=== PATIENT | female | born 1940 | race Caucasian/White ===

== ENCOUNTER 2022-07-08 14:23 | Observation (INO) ==
[2022-07-08] MEDS ORDERED: TUSSIONEX PENNKINETIC SUSP PO PRN (16:11)
[2022-07-08] MEDS ORDERED: NS 1/2 1,000 ML IV 1,000 ML IV ONE (16:22)
[2022-07-08] MEDS: NS 1/2 1,000 ML IV 1,000 ML IV SCH (16:51)
[2022-07-08 17:06] LABS: BASOPHILS % (AUTO) 0.7 % (0.2-1.0); EOSINOPHILS # (AUTO) 0.4 x10^3/uL (0.0-0.2); EOSINOPHILS % (AUTO) 7.4 % (0.9-2.9); HEMOGLOBIN 11.9 g/dL (12.0-16.0); LYMPHOCYTES # (AUTO) 1.9 X10^3/uL (1.3-2.9); LYMPHOCYTES % (AUTO) 35.1 % (21.0-51.0); MEAN CORPUSCULAR HEMOGLOBIN 31.7 pg (27.0-34.0); MEAN CORPUSCULAR HGB CONC 34.1 g/dL (33.0-35.0); MEAN CORPUSCULAR VOLUME 92.9 fL (80.0-100.0); MEAN PLATELET VOLUME 8.1 fL (7.4-11.0); MONOCYTES # (AUTO) 0.4 x10^3/uL (0.3-0.8); MONOCYTES % (AUTO) 7.3 % (0.0-13.0); NEUTROPHILS # (AUTO) 2.6 x10^3/uL (2.2-4.8); NEUTROPHILS % (AUTO) 49.5 % (42.0-75.0); RED BLOOD COUNT 3.76 X10^6/uL (3.5-5.4); RED CELL DISTRIBUTION WIDTH 13.6 % (11.6-16.5); WHITE BLOOD COUNT 5.3 X10^3/uL (3.6-10.0)
[2022-07-08] MEDS: DUONEB 0.5 MG/3 MG (3 mL) NEB SCH ×2 (17:06→20:18)
[2022-07-08] MEDS ORDERED: DUONEB 0.5 MG/3 MG (3 mL) NEB ONE (17:07)
[2022-07-08 17:15] LABS: ALANINE AMINOTRANSFERASE 58 Units/L (12-78); ALBUMIN 3.3 g/dL (3.4-5.0); ALKALINE PHOSPHATASE 78 Units/L (46-116); ASPARTATE AMINO TRANSFERASE 49 Units/L (15-37); BLOOD UREA NITROGEN 27 mg/dL (7-18); CARBON DIOXIDE 29.7 mmol/L (21-32); CHLORIDE 109 mmol/L (98-107); COR CA(FOR HYPOALB) 9.6 mg/dL (8.5-10.1); CREATININE 0.91 mg/dL (0.55-1.02); SODIUM 145 mmol/L (136-145); TOTAL PROTEIN 6.4 g/dL (6.4-8.2); eGFR NON BLACK RACES > 60 (>60)
[2022-07-08] MEDS ORDERED: FORTAZ or TAZICEF VIAL INJ ONE (17:38)
[2022-07-08] MEDS ORDERED: NS 100 ML IV 100 ML ONE (17:38)
[2022-07-08] MEDS: FORTAZ or TAZICEF VIAL INJ 1 G in NS 100 ML IV + SPIKE MINIBAG* 100 ML IV SCH ×2 (17:43→21:39)
[2022-07-08] MEDS: VSL#3 PO SCH (17:43)
[2022-07-08] MEDS: ROBITUSSIN DM PO SCH ×2 (17:43→20:45)
[2022-07-08] MEDS: LEVAQUIN PREMIX IV 750 MG 750 MG/150 ML BAG IV SCH (18:15)
[2022-07-08] MEDS ORDERED: PULMICORT NEB TX 0.5 MG NEB ONE (19:13)
[2022-07-08] MEDS: PULMICORT NEB TX 0.5 MG NEB SCH (20:18)
--- NOTE | 2022-07-08 20:36 | RAD ---
HISTORYPNEUMONIA Relevant Clinical InformationSTUDYCHEST, PA/LAT ADULTCOMPARISONNoneFINDINGSTrachea is midline. Heart size is normal. The lungs are hyperinflated with coarsened interstitial markings. No effusion or confluent airspace opacity. Coronary stent noted. Spinal scoliotic curvature.IMPRESSIONCOPD changes. No confluent pneumonia.Electronically signed by: Ebenezer Ma (Jul 08, 2022 20:34:41)
[2022-07-09] MEDS: DUONEB 0.5 MG/3 MG (3 mL) NEB SCH ×6 (00:02→20:45)
[2022-07-09] MEDS ORDERED: FORTAZ or TAZICEF VIAL INJ ONE ×2 (04:52→04:53)
[2022-07-09] MEDS ORDERED: NS 100 ML IV 0 ML ONE (04:52)
[2022-07-09] MEDS ORDERED: NS 100 ML IV 100 ML ONE (04:53)
[2022-07-09] MEDS: FORTAZ or TAZICEF VIAL INJ 1 G in NS 100 ML IV + SPIKE MINIBAG* 100 ML IV SCH (05:31)
[2022-07-09] MEDS ORDERED: NS 1/2 1,000 ML IV 1,000 ML IV ONE (05:32)
[2022-07-09 05:38] LABS: BASOPHILS % (AUTO) 0.5 % (0.2-1.0); EOSINOPHILS # (AUTO) 0.3 x10^3/uL (0.0-0.2); EOSINOPHILS % (AUTO) 7.6 % (0.9-2.9); HEMATOCRIT 33.3 % (36.0-47.0); HEMOGLOBIN 11.4 g/dL (12.0-16.0); LYMPHOCYTES # (AUTO) 1.8 X10^3/uL (1.3-2.9); LYMPHOCYTES % (AUTO) 40.8 % (21.0-51.0); MEAN CORPUSCULAR HEMOGLOBIN 31.7 pg (27.0-34.0); MEAN CORPUSCULAR HGB CONC 34.2 g/dL (33.0-35.0); MEAN CORPUSCULAR VOLUME 92.8 fL (80.0-100.0); MEAN PLATELET VOLUME 8.1 fL (7.4-11.0); MONOCYTES # (AUTO) 0.3 x10^3/uL (0.3-0.8); MONOCYTES % (AUTO) 7.3 % (0.0-13.0); NEUTROPHILS % (AUTO) 43.8 % (42.0-75.0); RED BLOOD COUNT 3.59 X10^6/uL (3.5-5.4); RED CELL DISTRIBUTION WIDTH 13.6 % (11.6-16.5); WHITE BLOOD COUNT 4.5 X10^3/uL (3.6-10.0)
[2022-07-09 05:47] LABS: ALANINE AMINOTRANSFERASE 47 Units/L (12-78); ALKALINE PHOSPHATASE 73 Units/L (46-116); ASPARTATE AMINO TRANSFERASE 39 Units/L (15-37); BLOOD UREA NITROGEN 21 mg/dL (7-18); CALCIUM 8.7 mg/dL (8.5-10.1); CHLORIDE 110 mmol/L (98-107); COR CA(FOR HYPOALB) 9.5 mg/dL (8.5-10.1); CREATININE 0.86 mg/dL (0.55-1.02); SODIUM 145 mmol/L (136-145); eGFR NON BLACK RACES > 60 (>60)
[2022-07-09] MEDS: NS 1/2 1,000 ML IV 1,000 ML IV SCH ×2 (05:59→20:55)
[2022-07-09] MEDS: VSL#3 PO SCH (08:53)
--- NOTE | 2022-07-09 08:56 | RAD ---
HISTORYShortness of breathSTUDYChest AP [id number]/10/2023FINDINGSHear t size is normal. Alvina are normal. Aorta is calcified. Lungs are hyperinflated but free of acute infiltrates. No pleural effusions are identified. Bony thorax is unremarkable.IMPRESSIONLungs hyperinflated but free of acute infiltrates. Consistent with COPD in the appropriate clinical settingElectronically signed by: NNEKA SOTO (Jul 09, 2022 08:54:30)
[2022-07-09] MEDS: ROBITUSSIN DM PO SCH ×4 (09:07→20:50)
[2022-07-09] MEDS: PULMICORT NEB TX 0.5 MG NEB SCH ×2 (09:24→20:45)
[2022-07-09] MEDS: LOVENOX INJ 40 MG SYR SC SCH (12:58)
[2022-07-09] MEDS: SOLU-Medrol 40 MG VIAL IVP SCH ×3 (12:58→21:00)
[2022-07-09] MEDS: FORTAZ or TAZICEF VIAL INJ 1 G in NS 100 ML IV 100 ML IV SCH ×2 (15:10→21:00)
[2022-07-09] MEDS: LEVAQUIN PREMIX IV 750 MG 750 MG/150 ML BAG IV SCH (20:48)
[2022-07-09] MEDS: LIPITOR TAB 40 MG PO SCH (20:50)
[2022-07-09] MEDS: PERIACTIN TAB 4 MG PO SCH (20:50)
[2022-07-09] MEDS: NAMENDA TAB 10 MG PO SCH (20:50)
--- NOTE | 2022-07-09 21:50 | DR.UPDATE ---
H&P Update H&P Reviewed: Yes Any changes to H&P?: Yes Changes noted:: WAS ADMITTED OBSERVATION STATUS FOR TREATMENT OF COPD EXACERBATION WITH ACUTE BRONCHITIS. SHE REPORTED PERSISTENT COUGH AND SHORTNESS OF BREATH FOR THE PAST SEVERAL DAYS. SHE HAD BEEN UTILIZING DUONEBS AT HOME WITHOUT IMPROVEMENT IN SYMPTOMS. ON ADMISSION, HER VITALS WERE 97.4-78-20-97%-158/70. LABS WERE OBTAINED. WBC 5.3, RBC 3.76, HGB 11.9, HCT 35.0, PLT COUNT 161, SODIUM 145, POTASSIUM 4.5, CHLORIDE 109, CARBON DIOXIDE 29.7, BUN 27, CREATININE 0.91, GLUCOSE 103, CALCIUM 9.0, TOTAL BILI 0.30, AST 49, ALT 58, ALK PHOS 78, TOTAL PROTEIN 6.4, ALBUMIN 3.3. BLOOD CULTURES WERE SET UP. A CHEST XRAY WAS OBTAINED AND REVEALED: COPD changes. No confluent pneumonia. SHE WAS STARTED ON NS AT 75 ML/HR, FORTAZ 1G IV Q8H, LEVAQUIN 750MG IV DAILY, DUONEBS Q4H, PULMICORT NEBS BID, TUSSIONEX 5ML PO Q12H PRN, LOVENOX 40MG SC DAILY, ROBITUSSIN DM 10ML QID, PROBIOTICS, AND SOLU-MEDROL 80MG IV Q8H. HER HOME MEDICATIONS WERE RESUMED. OTHERWISE, WE PLAN TO FOLLOW-UP WITH AM LABS AND CHEST XRAY AND CONTINUE TO MONITOR. TIME SPENT ON CLINICAL ASSESSMENT, REVIEWING LABS AND IMAGING, DECISION MAKING, AND DOCUMENTATION GREATER THAN 75 MINUTES. Patient was examined?: Yes
[2022-07-10] MEDS: DUONEB 0.5 MG/3 MG (3 mL) NEB SCH ×6 (01:25→20:57)
[2022-07-10] MEDS ORDERED: NS 1/2 1,000 ML IV 1,000 ML IV ONE (01:35)
[2022-07-10] MEDS: NS 1/2 1,000 ML IV 1,000 ML IV SCH ×2 (02:05→13:01)
[2022-07-10] MEDS: FORTAZ or TAZICEF VIAL INJ 1 G in NS 100 ML IV 100 ML IV SCH ×3 (05:03→21:27)
[2022-07-10] MEDS: SOLU-Medrol 40 MG VIAL IVP SCH ×3 (05:03→21:27)
[2022-07-10 05:27] LABS: BASOPHILS % (AUTO) 0.1 % (0.2-1.0); LYMPHOCYTES # (AUTO) 0.7 X10^3/uL (1.3-2.9); LYMPHOCYTES % (AUTO) 19.2 % (21.0-51.0); MEAN CORPUSCULAR HEMOGLOBIN 31.5 pg (27.0-34.0); MEAN CORPUSCULAR HGB CONC 34.2 g/dL (33.0-35.0); MEAN PLATELET VOLUME 8.1 fL (7.4-11.0); MONOCYTES # (AUTO) 0 x10^3/uL (0.3-0.8); MONOCYTES % (AUTO) 1.3 % (0.0-13.0); NEUTROPHILS # (AUTO) 2.8 x10^3/uL (2.2-4.8); NEUTROPHILS % (AUTO) 79.4 % (42.0-75.0); RED CELL DISTRIBUTION WIDTH 13.3 % (11.6-16.5); WHITE BLOOD COUNT 3.5 X10^3/uL (3.6-10.0)
[2022-07-10 05:51] LABS: ALANINE AMINOTRANSFERASE 40 Units/L (12-78); ALBUMIN 3.1 g/dL (3.4-5.0); ALKALINE PHOSPHATASE 78 Units/L (46-116); ASPARTATE AMINO TRANSFERASE 31 Units/L (15-37); BLOOD UREA NITROGEN 17 mg/dL (7-18); CALCIUM 8.9 mg/dL (8.5-10.1); CARBON DIOXIDE 27.7 mmol/L (21-32); CHLORIDE 111 mmol/L (98-107); COR CA(FOR HYPOALB) 9.6 mg/dL (8.5-10.1); COR NA(FOR HYPERGLY) 148 mmol/L (136-145); CREATININE 0.87 mg/dL (0.55-1.02); SODIUM 146 mmol/L (136-145); TOTAL PROTEIN 6.4 g/dL (6.4-8.2); eGFR NON BLACK RACES > 60 (>60)
[2022-07-10] MEDS ORDERED: POTASSIUM CHL 60 MEQ/NS 0.45% 500 ML IV PRN (06:24)
[2022-07-10] MEDS ORDERED: MICRO K EXTEN CAP 10 MEQ PO PRN (06:24)
[2022-07-10] MEDS ORDERED: KLOR-CON PO PRN (06:24)
[2022-07-10] MEDS ORDERED: POTASSIUM CHLORIDE LIQ 20 MEQ UDC PO PRN (06:24)
[2022-07-10] MEDS ORDERED: K-RIDER 10 MEQ/NS 100 ML 10 MEQ/100 ML BAG IV PRN (06:24)
[2022-07-10] MEDS ORDERED: POTASSIUM CHL 40 MEQ/NS 0.45% 500 ML IV PRN (06:24)
[2022-07-10] MEDS: K-DUR TAB 20 MEQ PO PRN (06:47)
[2022-07-10] MEDS: MAGNESIUM SULFATE 1 GRAM/100 mL PREMIX 1 G/100 ML BAG IV PRN ×2 (06:48→09:49)
--- NOTE | 2022-07-10 06:57 | RAD ---
HISTORYShortness of breathSTUDYChest AP [id number] June 2022FINDINGSHeart size is normal. Alvina are normal. Aorta is calcified. Lungs are mildly hyperinflated but free of acute infiltrates. No pleural effusions are identified. Bony thorax is unremarkable.IMPRESSIONLungs mildly hyperinflated but free of acute infiltrates. Consistent with COPD in the appropriate clinical settingElectronically signed by: NNEKA SOTO (Jul 10, 2022 06:55:14)
[2022-07-10] MEDS: PULMICORT NEB TX 0.5 MG NEB SCH ×2 (08:04→20:57)
--- NOTE | 2022-07-10 08:48 | EKG ---
Test Reason : CHEST PAIN Blood Pressure : */* mmHG Vent. Rate : 118 BPM Atrial Rate : 118 BPM P-R Int : 162 ms QRS Dur : 138 ms QT Int : 362 ms P-R-T Axes : 80 36 133 degrees QTc Int : 507 ms Atrial flutter with 2 to 1 block Left bundle branch block Abnormal ECG No previous ECGs available Confirmed by Surya Milner ([id number]) on 07/10/2022 11:18:36 AM Referred By: Confirmed By: Surya Milner
[2022-07-10] MEDS: VSL#3 PO SCH (08:51)
[2022-07-10] MEDS: ROBITUSSIN DM PO SCH ×4 (08:51→21:14)
[2022-07-10] MEDS: PERIACTIN TAB 4 MG PO SCH ×2 (08:52→21:13)
[2022-07-10] MEDS: LOVENOX INJ 40 MG SYR SC SCH (08:52)
[2022-07-10] MEDS: NAMENDA TAB 10 MG PO SCH ×2 (08:52→21:14)
[2022-07-10] MEDS ORDERED: NITROSTAT ONE ×2 (10:09→10:11)
[2022-07-10] MEDS: NITROSTAT SL PRN ×2 (10:14→10:19)
[2022-07-10] MEDS: COREG TAB 12.5 MG PO SCH ×2 (10:35→21:14)
--- NOTE | 2022-07-10 13:08 | EKG ---
Test Reason : CHEST PAIN Blood Pressure : */* mmHG Vent. Rate : 83 BPM Atrial Rate : 83 BPM P-R Int : 176 ms QRS Dur : 148 ms QT Int : 424 ms P-R-T Axes : 88 -31 89 degrees QTc Int : 498 ms Normal sinus rhythm Left axis deviation Left bundle branch block Abnormal ECG When compared with ECG of 10-JUL-2022 08:38, Previous ECG has undetermined rhythm, needs review QRS axis shifted left T wave inversion no longer evident in Inferior leads Confirmed by Surya Milner ([id number]) on 07/11/2022 7:31:41 PM Referred By: Confirmed By: Surya Milner
--- NOTE | 2022-07-10 14:37 | CT ---
CTA CHESTCLINICAL INDICATION: CHEST PAIN, SOB, R/O PE, ELEVATED D DIMERPROCEDURE: Non gated axial images of the chest were obtained with intravenous contrast according to pulmonary embolism protocol. MIPS were reconstructed Dose reduction techniques including Automated Exposure Control (AEC) and adjustment of mA and kV were utlized.COMPARISON:NoneFINDINGS:No evidence of a pulmonary embolism to the level of the segmental pulmonary arteries.The heart is normal in size . No pericardial effusion. Severe coronary calcification. Mild scarring of the lungs. No suspicious mediastinal or axillary lymph nodes . No focal consolidations, pleural effusions or pneumothorax .Airways are patent . No suspicious pulmonary nodules or masses .Limited images of the upper abdomen are unremarkable.No aggressive osseous lesions.IMPRESSION:1. No evidence of pulmonary embolism.Electronically signed by: SAYRA CLANCY (Jul 10, 2022 14:36:28)
--- NOTE | 2022-07-10 16:46 | EKG ---
Test Reason : CHEST PAIN Blood Pressure : */* mmHG Vent. Rate : 83 BPM Atrial Rate : 83 BPM P-R Int : 216 ms QRS Dur : 152 ms QT Int : 430 ms P-R-T Axes : 89 -46 90 degrees QTc Int : 505 ms Sinus rhythm with 1st degree AV block Left axis deviation Left bundle branch block Abnormal ECG When compared with ECG of 10-JUL-2022 13:01, (Unconfirmed) KS interval has increased Confirmed by Surya iMlner ([id number]) on 07/11/2022 7:31:36 PM Referred By: Confirmed By: Surya Milner
[2022-07-10] MEDS: LIPITOR TAB 40 MG PO SCH (21:14)
[2022-07-10] MEDS: LEVAQUIN PREMIX IV 750 MG 750 MG/150 ML BAG IV SCH (21:24)
[2022-07-11] MEDS: DUONEB 0.5 MG/3 MG (3 mL) NEB SCH ×5 (01:14→20:12)
[2022-07-11 05:20] LABS: BASOPHILS % (AUTO) 0 % (0.2-1.0); HEMATOCRIT 30.9 % (36.0-47.0); HEMOGLOBIN 10.9 g/dL (12.0-16.0); LYMPHOCYTES # (AUTO) 0.7 X10^3/uL (1.3-2.9); LYMPHOCYTES % (AUTO) 7.5 % (21.0-51.0); MEAN CORPUSCULAR HEMOGLOBIN 32.1 pg (27.0-34.0); MEAN CORPUSCULAR HGB CONC 35.2 g/dL (33.0-35.0); MEAN CORPUSCULAR VOLUME 91.2 fL (80.0-100.0); MONOCYTES # (AUTO) 0.4 x10^3/uL (0.3-0.8); NEUTROPHILS # (AUTO) 8.1 x10^3/uL (2.2-4.8); NEUTROPHILS % (AUTO) 88.5 % (42.0-75.0); RED BLOOD COUNT 3.39 X10^6/uL (3.5-5.4); RED CELL DISTRIBUTION WIDTH 13.3 % (11.6-16.5); WHITE BLOOD COUNT 9.2 X10^3/uL (3.6-10.0)
[2022-07-11 05:39] LABS: ALANINE AMINOTRANSFERASE 32 Units/L (12-78); ALBUMIN 3.1 g/dL (3.4-5.0); ALKALINE PHOSPHATASE 72 Units/L (46-116); ASPARTATE AMINO TRANSFERASE 28 Units/L (15-37); BLOOD UREA NITROGEN 21 mg/dL (7-18); CALCIUM 8.9 mg/dL (8.5-10.1); CARBON DIOXIDE 24.7 mmol/L (21-32); CHLORIDE 113 mmol/L (98-107); COR CA(FOR HYPOALB) 9.6 mg/dL (8.5-10.1); COR NA(FOR HYPERGLY) 149 mmol/L (136-145); CREATININE 0.86 mg/dL (0.55-1.02); MAGNESIUM 2.2 mg/dL (2.0-2.9); SODIUM 147 mmol/L (136-145); TOTAL PROTEIN 6.2 g/dL (6.4-8.2); eGFR NON BLACK RACES > 60 (>60)
[2022-07-11] MEDS: FORTAZ or TAZICEF VIAL INJ 1 G in NS 100 ML IV 100 ML IV SCH ×3 (05:40→21:17)
[2022-07-11] MEDS: SOLU-Medrol 40 MG VIAL IVP SCH ×3 (05:41→21:17)
[2022-07-11] MEDS: K-DUR TAB 20 MEQ PO PRN (06:29)
[2022-07-11] MEDS: NAMENDA TAB 10 MG PO SCH ×2 (09:24→20:04)
[2022-07-11] MEDS: LOVENOX INJ 40 MG SYR SC SCH (09:25)
[2022-07-11] MEDS: ROBITUSSIN DM PO SCH ×4 (09:25→20:03)
[2022-07-11] MEDS: VSL#3 PO SCH (09:25)
[2022-07-11] MEDS: COREG TAB 12.5 MG PO SCH ×2 (09:25→20:03)
[2022-07-11] MEDS: PERIACTIN TAB 4 MG PO SCH ×2 (09:25→20:04)
[2022-07-11] MEDS: PULMICORT NEB TX 0.5 MG NEB SCH ×2 (09:27→20:12)
[2022-07-11 10:50] LABS: BILIRUBIN,URINE NEGATIVE (NEGATIVE); BLOOD/HEMOGLOBIN,URINE 1+ (NEGATIVE); GLUCOSE, URINE NEGATIVE (NEGATIVE); KETONES,URINE NEGATIVE (NEGATIVE); LEUKOCYTE ESTERASE ,URINE NEGATIVE (NEGATIVE); NITRITES,URINE NEGATIVE (NEGATIVE); PROTEIN,URINE NEGATIVE (NEGATIVE); UROBILINOGEN,URINE NORMAL (NORMAL)
[2022-07-11 11:05] LABS: APPEARANCE,URINE CLEAR (CLEAR); BACTERIA,URINE NEGATIVE /HPF (NEGATIVE); COLOR,URINE STRAW (YELLOW); RBC,URINE 0-2 /HPF (0-3); SQUAMOUS EPITHELIAL CELL,UR FEW /HPF (NEGATIVE)
--- NOTE | 2022-07-11 11:47 | RAD ---
HISTORYBRONCHOPNEUMONIA, SOB Relevant Clinical InformationSTUDYCHEST, 1 [id number]/12/2023FINDINGSTrachea is midline. Borderline heart size. There is emphysemaNo evidence of focal pneumonia, pneumothorax or pleural effusions. Osseus structures are unremarkable.IMPRESSIONNo acute cardiopulmonary findings. EmphysemaElectronically signed by: Laurence Pichardo (Jul 11, 2022 11:46:24)
--- NOTE | 2022-07-11 13:02 | PCM.PROG ---
Progress Note - Progress Note for Day of Date of Exam: 07/10/22 - Subjective Subjective: IS A 82 YEAR OLD PATIENT OF OURS. SHE IS CURRENTLY OBSERVATION STATUS FOR [facility] OF COPD EXACERBATION WITH ACUTE BRONCHITIS. SHE HAS A PMH OF CVA, [place] WITH CARDIAC STENTS, DEMENTIA, ALZHEIMERS, HYPERLIPIDEMIA, HTN, ATHEROSCLEROTIC HEART DISEASE, CAD. TODAY, SHE IS ALERT AND ORIENTED, LYING IN BED ON MORNING ROUNDS. SHE CONTINUES WITH COMPLAINTS OF COUGH AND SHORTNESS OF BREATH. SHE ALSO REPORTS CHEST PAIN THAT STARTED THIS MORNING. PAIN WAS LOCATED IN THE LEFT PERICARDIAL REGION. PAIN DESCRIBED SHARP AND NONRADIATING. THERE IS ASSOCIATED SHORTNESS OF BREATH WITH CHEST PAIN. SHE REPORTS THAT PAIN LASTED FOR SEVERAL MINUTES AND THEN WENT AWAY. ON EXAMINATION, HEART IS REGULAR IN RATE AND RHYTHM. BILATERAL LUNGS ARE NOTED WITH RHONCHI, DIMINISHED. ABDOMEN IS FLAT, SOFT, AND NON-TENDER WITH NORMAL BOWEL SOUNDS NOTED IN ALL QUADRANTS. NO UPPER OR LOWER EXTREMITY EDEMA NOTED. HER VITALS THIS MORNING ARE: 98.5-92-20-93%-163/70. LABS WERE OBTAINED. WBC 3.5, RBC 3.80, HGB 12.0, HCT 35.0, PLT COUNT 148, D-DIMER 1.09, SODIUM 145, POTASSIUM 4.2, CHLORIDE 110, CARBON DIOXIDE 28.0, BUN 21, CREATININE 0.86, GLUCOSE 91, CALCIUM 8.7, AST 39, ALT 47, ALK PHOS 73, TOTAL PROTEIN 6.0, ALBUMIN 3.0. RESPIRATORY VIRAL PANEL IS POSITIVE FOR GROWTH OF STREPTOCOCCUS PNEUMONIAE AND RHINOVIRUS. SHE IS CURRENTLY RECEIVING NS AT 75 ML/HR, FORTAZ 1G IV Q8H, LEVAQUIN 750MG IV DAILY, DUONEBS Q4H, PULMICORT NEBS BID, TUSSIONEX 5ML PO Q12H PRN, LOVENOX 40MG SC DAILY, ROBITUSSIN DM 10ML QID, PROBIOTICS, AND SOLU-MEDROL 80MG IV Q8H. HER HOME MEDICATIONS OF LIPITOR, PERIACTIN, AND NAMENDA WERE RESUMED. WE WILL OBTAIN TROPONIN, CREATINE KINASE LEVEL, AND AN EKG THIS MORNING. 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 OTHERWISE, WE WILL FOLLOW-UP WITH AM LABS AND CONTINUE TO MONITOR. TIME SPENT ON CLINICAL ASSESSMENT, REVIWING LABS AND IMAGING, DECISION MAKING, AND DOCUMENTATION GREATER THAN 45 MINUTES. - Past Medical Family Social History Past Med/Fam/Surg Hx: No changes since H&P Allergies: Allergies No Known Allergies Allergy (Verified 07/08/22 17:30) - Review of Systems ROS: No change since H&P - Vital Signs and I&O's Vital Signs: Temperature 98 F Pulse Rate [Left Radial] 80 Pulse Rate 96 Respiratory Rate 16 Blood Pressure [Left Arm] 132/88 Blood Pressure [Right Arm] 162/82 O2 Sat by Pulse Oximetry 98 Intake and Output: Intake & Output 07/09/22 07/10/22 07/11/22 07/12/22 11:59 11:59 11:59 11:59 Intake Total 1457 / 1457 2460 / 2460 3140 / 3140 Balance 1457 / 1457 2460 / 2460 3140 / 3140 - Physical Exam Oriented: Normal Eyes: Normal Ear: Normal Nose: Normal Throat: Normal Respiratory: Diminished, Rhonchi Cardiovascular: Normal : Normal Auscultation: Bowel Sounds: Normal Palpation: Normal Tenderness: Normal Skin: Normal Musculoskeletal: Normal Psychiatric: Normal Mood Description: Calm Affect: Normal Speech Pattern: Clear, Appropriate - Laboratory and Diagnostics Result Diagrams: 07/11/22 04:46 07/11/22 08:50 Labs: 07/08/22 16:30 Blood Blood Culture - Preliminary 07/08/22 16:20 Blood Blood Culture - Preliminary Laboratory WBC 9.2 X10^3/uL (3.6-10.0) 07/11/22 04:46 RBC 3.39 X10^6/uL (3.5-5.4) L 07/11/22 04:46 Hgb 10.9 g/dL (12.0-16.0) L 07/11/22 04:46 Hct 30.9 % (36.0-47.0) L 07/11/22 04:46 MCV 91.2 fL (80.0-100.0) 07/11/22 04:46 MCH 32.1 pg (27.0-34.0) 07/11/22 04:46 MCHC 35.2 g/dL (33.0-35.0) H 07/11/22 04:46 RDW 13.3 % (11.6-16.5) 07/11/22 04:46 Plt Count 158 X10^3/uL (150.0-450.0) 07/11/22 04:46 MPV 8.0 fL (7.4-11.0) 07/11/22 04:46 Neut % (Auto) 88.5 % (42.0-75.0) H 07/11/22 04:46 Lymph % (Auto) 7.5 % (21.0-51.0) L 07/11/22 04:46 Cross % (Auto) 4.0 % (0.0-13.0) 07/11/22 04:46 Eos % (Auto) 0.0 % (0.9-2.9) L 07/11/22 04:46 Baso % (Auto) 0 % (0.2-1.0) L 07/11/22 04:46 Neut # (Auto) 8.1 x10^3/uL (2.2-4.8) H 07/11/22 04:46 Lymph # (Auto) 0.7 X10^3/uL (1.3-2.9) L 07/11/22 04:46 Cross # (Auto) 0.4 x10^3/uL (0.3-0.8) 07/11/22 04:46 Eos # (Auto) 0.0 x10^3/uL (0.0-0.2) 07/11/22 04:46 Baso # (Auto) 0.0 X10^3/uL (0.0-0.1) 07/11/22 04:46 Absolute Nucleated RBC 0.1 /100WBC 07/11/22 04:46 D-Dimer 1.09 ug/ml (0.0-0.57) H 07/10/22 10:23 Sodium 147 mmol/L (136-145) H 07/11/22 04:46 Corrected Sodium 149 mmol/L (136-145) H 07/11/22 04:46 Potassium 3.7 mmol/L (3.5-5.1) 07/11/22 08:50 Chloride 113 mmol/L (98-107) H 07/11/22 04:46 Carbon Dioxide 24.7 mmol/L (21-32) 07/11/22 04:46 BUN 21 mg/dL (7-18) H 07/11/22 04:46 Creatinine 0.86 mg/dL (0.55-1.02) 07/11/22 04:46 Est GFR (MDRD) Af Amer > 60 (>60) 07/11/22 04:46 Est GFR (MDRD) Non-Af > 60 (>60) 07/11/22 04:46 Glucose 169 mg/dL (65-99) H 07/11/22 04:46 Calcium 8.9 mg/dL (8.5-10.1) 07/11/22 04:46 Corrected Calcium 9.6 mg/dL (8.5-10.1) 07/11/22 04:46 Magnesium 2.2 mg/dL (2.0-2.9) 07/11/22 04:46 Total Bilirubin 0.20 mg/dL (0.2-1.0) 07/11/22 04:46 AST 28 Units/L (15-37) 07/11/22 04:46 ALT 32 Units/L (12-78) 07/11/22 04:46 Alkaline Phosphatase 72 Units/L (46-116) 07/11/22 04:46 Creatine Kinase 94 Units/L (26-192) 07/10/22 16:50 Troponin I High Sens 22.8 ng/L (4.0-60.0) 07/10/22 22:20 Total Protein 6.2 g/dL (6.4-8.2) L 07/11/22 04:46 Albumin 3.1 g/dL (3.4-5.0) L 07/11/22 04:46 Globulin 3.1 g/dL (2.5-4.5) 07/11/22 04:46 Albumin/Globulin Ratio 1.0 Ratio (1.1-2.1) L 07/11/22 04:46 Specimen Type Clean catch urine 07/11/22 10:15 Urine Color Straw (YELLOW) 07/11/22 10:15 Urine Appearance Clear (CLEAR) 07/11/22 10:15 Urine pH 6.0 (5.0 - 8.0) 07/11/22 10:15 Ur Specific [place] 1.010 (1.000-1.030) 07/11/22 10:15 Urine Protein Negative (NEGATIVE) 07/11/22 10:15 Urine Glucose (UA) Negative (NEGATIVE) 07/11/22 10:15 Urine Ketones Negative (NEGATIVE) 07/11/22 10:15 Urine Blood 1+ (NEGATIVE) 07/11/22 10:15 Urine Nitrite Negative (NEGATIVE) 07/11/22 10:15 Urine Bilirubin Negative (NEGATIVE) 07/11/22 10:15 Urine Urobilinogen Normal (NORMAL) 07/11/22 10:15 Ur Leukocyte Esterase Negative (NEGATIVE) 07/11/22 10:15 Urine RBC 0-2 /HPF (0-3) 07/11/22 10:15 Urine WBC 0-2 /HPF (0-5) 07/11/22 10:15 Ur Squamous Epith Cells Few /HPF (NEGATIVE) 07/11/22 10:15 Urine Bacteria Negative /HPF (NEGATIVE) 07/11/22 10:15 Ur Culture Indicated? No/not indicated 07/11/22 10:15 Resp Viral Panel (PCR) See scanned report 07/08/22 16:58 - Plan (1) COPD with acute bronchitis Status: Acute Plan: SUPPLEMENTAL OXYGEN, NS AT 75 ML/HR, FORTAZ 1G IV Q8H, LEVAQUIN 750MG IV DAILY, DUONEBS Q4H, PULMICORT NEBS BID, TUSSIONEX 5ML PO Q12H PRN, LOVENOX 40MG SC DAILY, ROBITUSSIN DM 10ML QID, PROBIOTICS, AND SOLU-MEDROL 80MG IV Q8H. RESUME HOME MEDS. CONSULT CARDIOLOGY, OBTAIN CARDIAC ENZYMES AND EKG (2) Streptococcus pneumoniae Status: Acute (3) Rhinovirus Status: Acute (4) Chest pain Status: Acute Qualifiers: Chest pain type: chest pain on breathing Qualified Code(s): R07.1 - Chest pain on breathing (5) Dementia Status: Chronic Qualifiers: Dementia type: Alzheimer's Alzheimer's disease onset: unspecified onset Dementia severity: unspecified severity Dementia behavioral or psychological symptom: without behavioral, psychotic, or mood disturbance or anxiety Qualified Code(s): G30.9 - Alzheimer's disease, unspecified; F02.80 - Dementia in other diseases classified elsewhere, unspecified severity, without behavioral disturbance, psychotic disturbance, mood disturbance, and anxiety (6) HTN (hypertension) Status: Acute Qualifiers: Hypertension type: primary hypertension Qualified Code(s): I10 - Essential (primary) hypertension (7) Atherosclerotic heart disease Status: Chronic Qualifiers: Coronary Disease-Associated Artery/Lesion type: [place] artery [place] vs. transplanted heart: [place] heart Associated angina: unspecified whether angina present Qualified Code(s): I25.10 - Atherosclerotic heart disease of [place] coronary artery without angina pectoris
[2022-07-11] MEDS ORDERED: NS 1/2 1,000 ML IV 1,000 ML IV ONE (14:04)
[2022-07-11] MEDS: NS 1/2 1,000 ML IV 1,000 ML IV SCH (14:13)
--- NOTE | 2022-07-11 15:30 | CT ---
HISTORYAMSSTUDYBRAIN W/O [id number]/04/2023TECHNIQUEMultiple axial images of the head were performed from the skull base to the vertex using standard departmental protocol. Sagittal and coronal reformatted images were performed. Dose reduction techniques including Automated Exposure Control (AEC) and adjustment of mA and kV were utilized.FINDINGSNo evidence of acute territorial infarct. No acute intracranial hemorrhage. No evidence of intracranial mass or midline shift. No hydrocephalus. No abnormal intra or extra-axial fluid collections. Chronic small vessel ischemic changes and global volume loss with commensurate ventricular dilatation. Intracranial vascular calcifications.The calvaria is intact. The bilateral mastoid air cells and visualized paranasal sinuses are well pneumatized. The bilateral orbits are unremarkable.IMPRESSIONNo acute intracranial findings.Electronically signed by: NNEKA SOTO (Jul 11, 2022 15:29:19)
[2022-07-11] MEDS ORDERED: CATAPRES TAB 0.1 MG PO ONE (16:32)
[2022-07-11] MEDS ORDERED: NORMODYNE INJ 20 MG VIAL IV PRN (16:32)
[2022-07-11] MEDS ORDERED: APRESOLINE INJ 20 MG VIAL IVP ONE (16:32)
[2022-07-11] MEDS ORDERED: VALIUM INJ IVP ONE (19:16)
[2022-07-11] MEDS: LEVAQUIN PREMIX IV 750 MG 750 MG/150 ML BAG IV SCH (20:04)
[2022-07-11] MEDS: LIPITOR TAB 40 MG PO SCH (20:04)
[2022-07-12] MEDS: FORTAZ or TAZICEF VIAL INJ 1 G in NS 100 ML IV 100 ML IV SCH ×3 (00:05→14:14)
[2022-07-12] MEDS: DUONEB 0.5 MG/3 MG (3 mL) NEB SCH ×6 (04:51→21:20)
[2022-07-12] MEDS: NS 1/2 1,000 ML IV 1,000 ML IV SCH ×2 (05:49→18:01)
[2022-07-12] MEDS: SOLU-Medrol 40 MG VIAL IVP SCH ×3 (05:49→21:20)
[2022-07-12 06:12] LABS: BASOPHILS % (AUTO) 0 % (0.2-1.0); HEMATOCRIT 29.6 % (36.0-47.0); HEMOGLOBIN 10.3 g/dL (12.0-16.0); LYMPHOCYTES # (AUTO) 0.6 X10^3/uL (1.3-2.9); LYMPHOCYTES % (AUTO) 8.7 % (21.0-51.0); MEAN CORPUSCULAR HEMOGLOBIN 32.1 pg (27.0-34.0); MEAN CORPUSCULAR HGB CONC 34.8 g/dL (33.0-35.0); MEAN CORPUSCULAR VOLUME 92.2 fL (80.0-100.0); MEAN PLATELET VOLUME 7.9 fL (7.4-11.0); MONOCYTES # (AUTO) 0.3 x10^3/uL (0.3-0.8); NEUTROPHILS # (AUTO) 5.5 x10^3/uL (2.2-4.8); NEUTROPHILS % (AUTO) 87.3 % (42.0-75.0); RED BLOOD COUNT 3.21 X10^6/uL (3.5-5.4); RED CELL DISTRIBUTION WIDTH 13.5 % (11.6-16.5); WHITE BLOOD COUNT 6.3 X10^3/uL (3.6-10.0)
[2022-07-12 06:29] LABS: ALANINE AMINOTRANSFERASE 29 Units/L (12-78); ALBUMIN 2.7 g/dL (3.4-5.0); ALKALINE PHOSPHATASE 61 Units/L (46-116); ASPARTATE AMINO TRANSFERASE 27 Units/L (15-37); BLOOD UREA NITROGEN 24 mg/dL (7-18); CALCIUM 8.5 mg/dL (8.5-10.1); CARBON DIOXIDE 26.1 mmol/L (21-32); CHLORIDE 113 mmol/L (98-107); COR CA(FOR HYPOALB) 9.5 mg/dL (8.5-10.1); COR NA(FOR HYPERGLY) 148 mmol/L (136-145); CREATININE 0.76 mg/dL (0.55-1.02); SODIUM 147 mmol/L (136-145); TOTAL PROTEIN 5.6 g/dL (6.4-8.2); eGFR NON BLACK RACES > 60 (>60)
--- NOTE | 2022-07-12 07:30 | RAD ---
HISTORYShortness of breathSTUDYChest AP [id number]/13/2023FINDINGSHear t size is normal. Alvina are normal. Lung shukla are clear. No pleural effusions are identified. Bony thorax is unremarkable.IMPRESSIONLungs clearElectronically signed by: NNEKA SOTO (Jul 12, 2022 07:28:35)
[2022-07-12] MEDS: PULMICORT NEB TX 0.5 MG NEB SCH ×2 (08:49→21:19)
[2022-07-12] MEDS: NAMENDA TAB 10 MG PO SCH ×2 (09:21→21:20)
[2022-07-12] MEDS: LOVENOX INJ 40 MG SYR SC SCH (09:21)
[2022-07-12] MEDS: PERIACTIN TAB 4 MG PO SCH ×2 (09:22→21:20)
[2022-07-12] MEDS: COREG TAB 12.5 MG PO SCH ×2 (09:22→21:20)
[2022-07-12] MEDS: K-DUR TAB 20 MEQ PO PRN (09:22)
[2022-07-12] MEDS: ROBITUSSIN DM PO SCH ×4 (09:22→21:20)
[2022-07-12] MEDS: VSL#3 PO SCH (09:22)
--- NOTE | 2022-07-12 11:34 | PCM.PROG ---
Progress Note - Progress Note for Day of Date of Exam: 07/11/22 - Subjective Subjective: IS A 82 YEAR OLD PATIENT OF OURS. SHE IS CURRENTLY OBSERVATION STATUS FOR [facility] OF COPD EXACERBATION WITH ACUTE BRONCHITIS. SHE HAS A PMH OF CVA, [place] WITH CARDIAC STENTS, DEMENTIA, ALZHEIMERS, HYPERLIPIDEMIA, HTN, ATHEROSCLEROTIC HEART DISEASE, CAD. TODAY, SHE IS ALERT, LYING IN BED ON MORNING ROUNDS. SHE DOES SEEM TO BE SOMEWHAT CONFUSED THIS MORNING, BUT IS ABLE TO FOLLOW COMMANDS APPROPRIATELY. SHE DENIES CHEST PAIN THIS MORNING, BUT CONTINUES WITH COMPLAINTS OF COUGH AND SHORTNESS OF BREATH AT TIMES. ON EXAMINATION, HEART IS REGULAR IN RATE AND RHYTHM. BILATERAL LUNGS ARE NOTED WITH RHONCHI, DIMINISHED. ABDOMEN IS FLAT, SOFT, AND NON-TENDER WITH NORMAL BOWEL SOUNDS NOTED IN ALL QUADRANTS. NO UPPER OR LOWER EXTREMITY EDEMA NOTED. HER VITALS THIS MORNING ARE: 97.6-91-16-97%-177/78. LABS WERE OBTAINED. WBC 9.2, RBC 3.39, HGB 10.9, HCT 30.9, PLT COUNT 158, SODIUM 147, POTASSIUM 3.6, CHLORIDE 113, BUN 21, CREATININE 0.86, GLUCOSE 169, AST 28, ALT 32, ALK PHOS 72, TOTAL PROTEIN 6.2, ALBUMIN 3.1. RESPIRATORY VIRAL PANEL IS POSITIVE FOR GROWTH OF STREPTOCOCCUS PNEUMONIAE AND RHINOVIRUS. SHE IS CURRENTLY RECEIVING NS AT 75 ML/HR, FORTAZ 1G IV Q8H, LEVAQUIN 750MG IV DAILY, DUONEBS Q4H, PULMICORT NEBS BID, TUSSIONEX 5ML PO Q12H PRN, LOVENOX 40MG SC DAILY, ROBITUSSIN DM 10ML QID, PROBIOTICS, AND SOLU-MEDROL 80MG IV Q8H. HER HOME MEDICATIONS OF LIPITOR, PERIACTIN, AND NAMENDA WERE RESUMED. WE WILL OBTAIN A BRAIN CT WITHOUT CONTRAST TODAY DUE TO ACUTE CONFUSION AND WEAKNESS. 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 WE ARE IN AGREEMENT, BUT WILL HAVE HER FOLLOW-UP WITH HER REGULAR PAPER TESTING SUPERVISOR UPON DISCHARGE. OTHERWISE, WE WILL FOLLOW-UP WITH AM LABS AND CONTINUE TO MONITOR. TIME SPENT ON CLINICAL ASSESSMENT, REVIWING LABS AND IMAGING, DECISION MAKING, AND DOCUMENTATION GREATER THAN 45 MINUTES. - Past Medical Family Social History Past Med/Fam/Surg Hx: No changes since H&P Allergies: Allergies No Known Allergies Allergy (Verified 07/08/22 17:30) - Review of Systems ROS: No change since H&P - Vital Signs and I&O's Vital Signs: Temperature 98.8 F Pulse Rate [Left Radial] 76 Pulse Rate 75 Respiratory Rate 20 Blood Pressure [Left Arm] 153/69 Blood Pressure [Right Arm] 162/82 O2 Sat by Pulse Oximetry 92 Intake and Output: Intake & Output 07/09/22 07/10/22 07/11/22 07/12/22 11:59 11:59 11:59 11:59 Intake Total 1457 / 1457 2460 / 2460 3140 / 3140 3240 / 3240 Balance 1457 / 1457 2460 / 2460 3140 / 3140 3240 / 3240 - Physical Exam Oriented: Normal Eyes: Normal Ear: Normal Nose: Normal Throat: Normal Respiratory: Diminished, Rhonchi Cardiovascular: Normal : Normal Auscultation: Bowel Sounds: Normal Palpation: Normal Tenderness: Normal Skin: Normal Musculoskeletal: Normal Psychiatric: Normal Mood Description: Calm Affect: Normal Speech Pattern: Clear, Appropriate - Laboratory and Diagnostics Result Diagrams: 07/12/22 05:44 07/12/22 05:44 Labs: 07/08/22 16:30 Blood Blood Culture - Preliminary 07/08/22 16:20 Blood Blood Culture - Preliminary Laboratory WBC 6.3 X10^3/uL (3.6-10.0) 07/12/22 05:44 RBC 3.21 X10^6/uL (3.5-5.4) L 07/12/22 05:44 Hgb 10.3 g/dL (12.0-16.0) L 07/12/22 05:44 Hct 29.6 % (36.0-47.0) L 07/12/22 05:44 MCV 92.2 fL (80.0-100.0) 07/12/22 05:44 MCH 32.1 pg (27.0-34.0) 07/12/22 05:44 MCHC 34.8 g/dL (33.0-35.0) 07/12/22 05:44 RDW 13.5 % (11.6-16.5) 07/12/22 05:44 Plt Count 133 X10^3/uL (150.0-450.0) L 07/12/22 05:44 MPV 7.9 fL (7.4-11.0) 07/12/22 05:44 Neut % (Auto) 87.3 % (42.0-75.0) H 07/12/22 05:44 Lymph % (Auto) 8.7 % (21.0-51.0) L 07/12/22 05:44 [place] % (Auto) 4.0 % (0.0-13.0) 07/12/22 05:44 Eos % (Auto) 0.0 % (0.9-2.9) L 07/12/22 05:44 Baso % (Auto) 0 % (0.2-1.0) L 07/12/22 05:44 Neut # (Auto) 5.5 x10^3/uL (2.2-4.8) H 07/12/22 05:44 Lymph # (Auto) 0.6 X10^3/uL (1.3-2.9) L 07/12/22 05:44 [place] # (Auto) 0.3 x10^3/uL (0.3-0.8) 07/12/22 05:44 Eos # (Auto) 0.0 x10^3/uL (0.0-0.2) 07/12/22 05:44 Baso # (Auto) 0.0 X10^3/uL (0.0-0.1) 07/12/22 05:44 Absolute Nucleated RBC 0.1 /100WBC 07/12/22 05:44 D-Dimer 1.09 ug/ml (0.0-0.57) H 07/10/22 10:23 Sodium 147 mmol/L (136-145) H 07/12/22 05:44 Corrected Sodium 148 mmol/L (136-145) H 07/12/22 05:44 Potassium 3.7 mmol/L (3.5-5.1) 07/12/22 05:44 Chloride 113 mmol/L (98-107) H 07/12/22 05:44 Carbon Dioxide 26.1 mmol/L (21-32) 07/12/22 05:44 BUN 24 mg/dL (7-18) H 07/12/22 05:44 Creatinine 0.76 mg/dL (0.55-1.02) 07/12/22 05:44 Est GFR (MDRD) Af Amer > 60 (>60) 07/12/22 05:44 Est GFR (MDRD) Non-Af > 60 (>60) 07/12/22 05:44 Glucose 159 mg/dL (65-99) H 07/12/22 05:44 Calcium 8.5 mg/dL (8.5-10.1) 07/12/22 05:44 Corrected Calcium 9.5 mg/dL (8.5-10.1) 07/12/22 05:44 Magnesium 2.2 mg/dL (2.0-2.9) 07/11/22 04:46 Total Bilirubin 0.20 mg/dL (0.2-1.0) 07/12/22 05:44 AST 27 Units/L (15-37) 07/12/22 05:44 ALT 29 Units/L (12-78) 07/12/22 05:44 Alkaline Phosphatase 61 Units/L (46-116) 07/12/22 05:44 Creatine Kinase 94 Units/L (26-192) 07/10/22 16:50 Troponin I High Sens 22.8 ng/L (4.0-60.0) 07/10/22 22:20 Total Protein 5.6 g/dL (6.4-8.2) L 07/12/22 05:44 Albumin 2.7 g/dL (3.4-5.0) L 07/12/22 05:44 Globulin 2.9 g/dL (2.5-4.5) 07/12/22 05:44 Albumin/Globulin Ratio 0.9 Ratio (1.1-2.1) L 07/12/22 05:44 Specimen Type Clean catch urine 07/11/22 10:15 Urine Color Straw (YELLOW) 07/11/22 10:15 Urine Appearance Clear (CLEAR) 07/11/22 10:15 Urine pH 6.0 (5.0 - 8.0) 07/11/22 10:15 Ur Specific [place] 1.010 (1.000-1.030) 07/11/22 10:15 Urine Protein Negative (NEGATIVE) 07/11/22 10:15 Urine Glucose (UA) Negative (NEGATIVE) 07/11/22 10:15 Urine Ketones Negative (NEGATIVE) 07/11/22 10:15 Urine Blood 1+ (NEGATIVE) 07/11/22 10:15 Urine Nitrite Negative (NEGATIVE) 07/11/22 10:15 Urine Bilirubin Negative (NEGATIVE) 07/11/22 10:15 Urine Urobilinogen Normal (NORMAL) 07/11/22 10:15 Ur Leukocyte Esterase Negative (NEGATIVE) 07/11/22 10:15 Urine RBC 0-2 /HPF (0-3) 07/11/22 10:15 Urine WBC 0-2 /HPF (0-5) 07/11/22 10:15 Ur Squamous Epith Cells Few /HPF (NEGATIVE) 07/11/22 10:15 Urine Bacteria Negative /HPF (NEGATIVE) 07/11/22 10:15 Ur Culture Indicated? No/not indicated 07/11/22 10:15 Resp Viral Panel (PCR) See scanned report 07/08/22 16:58 - Plan (1) COPD with acute bronchitis Status: Acute Plan: SUPPLEMENTAL OXYGEN, NS AT 75 ML/HR, FORTAZ 1G IV Q8H, LEVAQUIN 750MG IV DAILY, DUONEBS Q4H, PULMICORT NEBS BID, TUSSIONEX 5ML PO Q12H PRN, LOVENOX 40MG SC DAILY, ROBITUSSIN DM 10ML QID, PROBIOTICS, AND SOLU-MEDROL 80MG IV Q8H. RESUME HOME MEDS. CONSULT CARDIOLOGY, OBTAIN CARDIAC ENZYMES AND EKG (2) Streptococcus pneumoniae Status: Acute (3) Rhinovirus Status: Acute (4) Chest pain Status: Resolved Qualifiers: Chest pain type: chest pain on breathing Qualified Code(s): R07.1 - Chest pain on breathing (5) Dementia Status: Chronic Qualifiers: Dementia type: Alzheimer's Alzheimer's disease onset: unspecified onset Dementia severity: unspecified severity Dementia behavioral or psychological symptom: without behavioral, psychotic, or mood disturbance or anxiety Qualified Code(s): G30.9 - Alzheimer's disease, unspecified; F02.80 - Dementia in other diseases classified elsewhere, unspecified severity, without behavioral disturbance, psychotic disturbance, mood disturbance, and anxiety (6) HTN (hypertension) Status: Acute Qualifiers: Hypertension type: primary hypertension Qualified Code(s): I10 - Essential (primary) hypertension (7) Atherosclerotic heart disease Status: Chronic Qualifiers: Coronary Disease-Associated Artery/Lesion type: [place] artery [place] vs. transplanted heart: [place] heart Associated angina: unspecified whether angina present Qualified Code(s): I25.10 - Atherosclerotic heart disease of [place] coronary artery without angina pectoris
[2022-07-12] MEDS ORDERED: NS 1/2 1,000 ML IV 1,000 ML IV ONE (16:48)
[2022-07-12] MEDS: LIPITOR TAB 40 MG PO SCH (21:20)
[2022-07-12] MEDS: LEVAQUIN PREMIX IV 750 MG 750 MG/150 ML BAG IV SCH (21:20)
[2022-07-13] MEDS: DUONEB 0.5 MG/3 MG (3 mL) NEB SCH ×6 (00:22→20:05)
[2022-07-13 05:26] LABS: BASOPHILS % (AUTO) 0 % (0.2-1.0); HEMATOCRIT 28.8 % (36.0-47.0); HEMOGLOBIN 10.2 g/dL (12.0-16.0); LYMPHOCYTES # (AUTO) 0.4 X10^3/uL (1.3-2.9); LYMPHOCYTES % (AUTO) 7.3 % (21.0-51.0); MEAN CORPUSCULAR HEMOGLOBIN 32.3 pg (27.0-34.0); MEAN CORPUSCULAR HGB CONC 35.6 g/dL (33.0-35.0); MEAN CORPUSCULAR VOLUME 90.7 fL (80.0-100.0); MONOCYTES # (AUTO) 0.2 x10^3/uL (0.3-0.8); MONOCYTES % (AUTO) 3.7 % (0.0-13.0); NEUTROPHILS # (AUTO) 4.4 x10^3/uL (2.2-4.8); RED BLOOD COUNT 3.17 X10^6/uL (3.5-5.4); RED CELL DISTRIBUTION WIDTH 13.4 % (11.6-16.5); WHITE BLOOD COUNT 4.9 X10^3/uL (3.6-10.0)
[2022-07-13 05:37] LABS: ALANINE AMINOTRANSFERASE 35 Units/L (12-78); ALBUMIN 2.6 g/dL (3.4-5.0); ALKALINE PHOSPHATASE 57 Units/L (46-116); ASPARTATE AMINO TRANSFERASE 25 Units/L (15-37); BLOOD UREA NITROGEN 21 mg/dL (7-18); CALCIUM 8.3 mg/dL (8.5-10.1); CARBON DIOXIDE 25.7 mmol/L (21-32); CHLORIDE 113 mmol/L (98-107); COR CA(FOR HYPOALB) 9.4 mg/dL (8.5-10.1); COR NA(FOR HYPERGLY) 149 mmol/L (136-145); CREATININE 0.77 mg/dL (0.55-1.02); SODIUM 147 mmol/L (136-145); TOTAL PROTEIN 5.4 g/dL (6.4-8.2); eGFR NON BLACK RACES > 60 (>60)
[2022-07-13] MEDS: SOLU-Medrol 40 MG VIAL IVP SCH ×3 (05:45→21:00)
[2022-07-13] MEDS: FORTAZ or TAZICEF VIAL INJ 1 G in NS 100 ML IV 100 ML IV SCH ×3 (05:45→22:45)
[2022-07-13] MEDS: PULMICORT NEB TX 0.5 MG NEB SCH ×2 (08:35→20:05)
[2022-07-13] MEDS: COREG TAB 12.5 MG PO SCH ×2 (08:43→20:30)
[2022-07-13] MEDS: VSL#3 PO SCH (08:43)
[2022-07-13] MEDS: LOVENOX INJ 40 MG SYR SC SCH (08:43)
[2022-07-13] MEDS: K-DUR TAB 20 MEQ PO PRN (08:43)
[2022-07-13] MEDS: PERIACTIN TAB 4 MG PO SCH ×2 (08:43→20:30)
[2022-07-13] MEDS: NAMENDA TAB 10 MG PO SCH ×2 (08:43→20:30)
[2022-07-13] MEDS: ROBITUSSIN DM PO SCH ×4 (08:43→20:30)
--- NOTE | 2022-07-13 10:41 | RAD ---
HISTORYSOBSTUDYAP chestCOMPARISONApril 2022FINDINGSHeart size remains normal with clear lungs and pleural spaces.IMPRESSIONNo significant interval change or acute abnormality demonstrated.Electronically signed by: RIVKA AMEZCUA (Jul 13, 2022 10:40:48)
[2022-07-13] MEDS ORDERED: NORVASC TAB 5 MG PO SCH (13:00)
[2022-07-13] MEDS ORDERED: NS 1/2 1,000 ML IV 1,000 ML IV ONE ×2 (13:46→19:48)
[2022-07-13] MEDS: NS 1/2 1,000 ML IV 1,000 ML IV SCH ×2 (13:48→20:22)
[2022-07-13] MEDS: LEVAQUIN PREMIX IV 750 MG 750 MG/150 ML BAG IV SCH (20:22)
[2022-07-13] MEDS: LIPITOR TAB 40 MG PO SCH (20:30)
[2022-07-13] MEDS: VALIUM PO PRN (20:30)
--- NOTE | 2022-07-13 21:39 | PCM.PROG ---
Progress Note - Progress Note for Day of Date of Exam: 07/12/22 - Subjective Subjective: IS A 82 YEAR OLD PATIENT OF OURS. SHE IS CURRENTLY OBSERVATION STATUS FOR [facility] OF COPD EXACERBATION WITH ACUTE BRONCHITIS. SHE HAS A PMH OF CVA, [place] WITH CARDIAC STENTS, DEMENTIA, ALZHEIMERS, HYPERLIPIDEMIA, HTN, ATHEROSCLEROTIC HEART DISEASE, CAD. TODAY, SHE IS ALERT AND ORIENTED, LYING IN BED ON MORNING ROUNDS. SHE IS ABLE TO FOLLOW COMMANDS AND ANSWER QUESTIONS APPROPRIATELY. SHE DENIES CHEST PAIN THIS MORNING, BUT CONTINUES WITH COMPLAINTS OF COUGH AND SHORTNESS OF BREATH AT TIMES. ON EXAMINATION, HEART IS REGULAR IN RATE AND RHYTHM. BILATERAL LUNGS ARE NOTED WITH RHONCHI, DIMINISHED. ABDOMEN IS FLAT, SOFT, AND NON-TENDER WITH NORMAL BOWEL SOUNDS NOTED IN ALL QUADRANTS. NO UPPER OR LOWER EXTREMITY EDEMA NOTED. HER VITALS THIS MORNING ARE: 98.8-76-20-96%-153/69. LABS WERE OBTAINED. WBC 6.3, RBC 3.21, HGB 10.3, HCT 29.6, PLT COUNT 133, SODIUM 147, POTASSIUM 3.7, CHLORIDE 113, BUN 24, CREATININE 0.76, GLCUOSE 159, CALCIUM 8.5, AST 27, ALT 29, ALK PHOS 61, TOTAL PROTEIN 5.6, ALBUMIN 2.7. RESPIRATORY VIRAL PANEL IS POSITIVE FOR GROWTH OF STREPTOCOCCUS PNEUMONIAE AND RHINOVIRUS. A BRAIN CT WAS OBTAINED YESTERDAY DUE TO INCREASED WEAKNESS AND CONFUSION. IT WAS NEGATIVE FOR ACUTE INTRACRANIAL ABNORMALITY. ECHO REVEALED AN EJECTION FRACTION OF 68%. SHE IS CURRENTLY RECEIVING NS AT 75 ML/HR, FORTAZ 1G IV Q8H, LEVAQUIN 750MG IV DAILY, DUONEBS Q4H, PULMICORT NEBS BID, TUSSIONEX 5ML PO Q12H PRN, LOVENOX 40MG SC DAILY, ROBITUSSIN DM 10ML QID, PROBIOTICS, AND SOLU-MEDROL 80MG IV Q8H. HER HOME MEDICATIONS OF LIPITOR, PERIACTIN, AND NAMENDA WERE RESUMED. PATIENT IS NO LONGER ABLE TO CARE FOR HERSELF AT HOME. WE ARE ARRANGING CARE HOME PLACEMENT. OTHERWISE, WE WILL FOLLOW-UP WITH AM LABS AND CONTINUE TO MONITOR. TIME SPENT ON CLINICAL ASSESSMENT, REVIWING LABS AND IMAGING, DECISION MAKING, AND DOCUMENTATION GREATER THAN 45 MINUTES. - Past Medical Family Social History Past Med/Fam/Surg Hx: No changes since H&P Allergies: Allergies No Known Allergies Allergy (Verified 07/08/22 17:30) - Review of Systems ROS: No change since H&P - Vital Signs and I&O's Vital Signs: Temperature 98.1 F Pulse Rate [Left Radial] 78 Pulse Rate 88 Respiratory Rate 18 Blood Pressure [Left Arm] 169/74 Blood Pressure [Right Arm] 162/82 O2 Sat by Pulse Oximetry 94 Intake and Output: Intake & Output 07/11/22 07/12/22 07/13/22 07/14/22 11:59 11:59 11:59 11:59 Intake Total 3140 / 3140 3240 / 3240 3073 / 3073 1290 / 1290 Balance 3140 / 3140 3240 / 3240 3073 / 3073 1290 / 1290 - Physical Exam Oriented: Normal Eyes: Normal Ear: Normal Nose: Normal Throat: Normal Respiratory: Diminished, Rhonchi Cardiovascular: Normal : Normal Auscultation: Bowel Sounds: Normal Tenderness: Normal Skin: Normal Musculoskeletal: Normal Psychiatric: Normal Mood Description: Calm Affect: Normal Speech Pattern: Clear, Appropriate - Laboratory and Diagnostics Result Diagrams: 07/13/22 04:50 07/13/22 04:50 Labs: 07/08/22 16:30 Blood Blood Culture - Preliminary 07/08/22 16:20 Blood Blood Culture - Preliminary Laboratory WBC 4.9 X10^3/uL (3.6-10.0) 07/13/22 04:50 RBC 3.17 X10^6/uL (3.5-5.4) L 07/13/22 04:50 Hgb 10.2 g/dL (12.0-16.0) L 07/13/22 04:50 Hct 28.8 % (36.0-47.0) L 07/13/22 04:50 MCV 90.7 fL (80.0-100.0) 07/13/22 04:50 MCH 32.3 pg (27.0-34.0) 07/13/22 04:50 MCHC 35.6 g/dL (33.0-35.0) H 07/13/22 04:50 RDW 13.4 % (11.6-16.5) 07/13/22 04:50 Plt Count 138 X10^3/uL (150.0-450.0) L 07/13/22 04:50 MPV 8.0 fL (7.4-11.0) 07/13/22 04:50 Neut % (Auto) 89.0 % (42.0-75.0) H 07/13/22 04:50 Lymph % (Auto) 7.3 % (21.0-51.0) L 07/13/22 04:50 [place] % (Auto) 3.7 % (0.0-13.0) 07/13/22 04:50 Eos % (Auto) 0.0 % (0.9-2.9) L 07/13/22 04:50 Baso % (Auto) 0 % (0.2-1.0) L 07/13/22 04:50 Neut # (Auto) 4.4 x10^3/uL (2.2-4.8) 07/13/22 04:50 Lymph # (Auto) 0.4 X10^3/uL (1.3-2.9) L 07/13/22 04:50 [place] # (Auto) 0.2 x10^3/uL (0.3-0.8) L 07/13/22 04:50 Eos # (Auto) 0.0 x10^3/uL (0.0-0.2) 07/13/22 04:50 Baso # (Auto) 0.0 X10^3/uL (0.0-0.1) 07/13/22 04:50 Absolute Nucleated RBC 0.1 /100WBC 07/13/22 04:50 D-Dimer 1.09 ug/ml (0.0-0.57) H 07/10/22 10:23 Sodium 147 mmol/L (136-145) H 07/13/22 04:50 Corrected Sodium 149 mmol/L (136-145) H 07/13/22 04:50 Potassium 3.7 mmol/L (3.5-5.1) 07/13/22 04:50 Chloride 113 mmol/L (98-107) H 07/13/22 04:50 Carbon Dioxide 25.7 mmol/L (21-32) 07/13/22 04:50 BUN 21 mg/dL (7-18) H 07/13/22 04:50 Creatinine 0.77 mg/dL (0.55-1.02) 07/13/22 04:50 Est GFR (MDRD) Af Amer > 60 (>60) 07/13/22 04:50 Est GFR (MDRD) Non-Af > 60 (>60) 07/13/22 04:50 Glucose 195 mg/dL (65-99) H 07/13/22 04:50 Calcium 8.3 mg/dL (8.5-10.1) L 07/13/22 04:50 Corrected Calcium 9.4 mg/dL (8.5-10.1) 07/13/22 04:50 Magnesium 2.2 mg/dL (2.0-2.9) 07/11/22 04:46 Total Bilirubin 0.20 mg/dL (0.2-1.0) 07/13/22 04:50 AST 25 Units/L (15-37) 07/13/22 04:50 ALT 35 Units/L (12-78) 07/13/22 04:50 Alkaline Phosphatase 57 Units/L (46-116) 07/13/22 04:50 Creatine Kinase 94 Units/L (26-192) 07/10/22 16:50 Troponin I High Sens 22.8 ng/L (4.0-60.0) 07/10/22 22:20 Total Protein 5.4 g/dL (6.4-8.2) L 07/13/22 04:50 Albumin 2.6 g/dL (3.4-5.0) L 07/13/22 04:50 Globulin 2.8 g/dL (2.5-4.5) 07/13/22 04:50 Albumin/Globulin Ratio 0.9 Ratio (1.1-2.1) L 07/13/22 04:50 Specimen Type Clean catch urine 07/11/22 10:15 Urine Color Straw (YELLOW) 07/11/22 10:15 Urine Appearance Clear (CLEAR) 07/11/22 10:15 Urine pH 6.0 (5.0 - 8.0) 07/11/22 10:15 Ur Specific [place] 1.010 (1.000-1.030) 07/11/22 10:15 Urine Protein Negative (NEGATIVE) 07/11/22 10:15 Urine Glucose (UA) Negative (NEGATIVE) 07/11/22 10:15 Urine Ketones Negative (NEGATIVE) 07/11/22 10:15 Urine Blood 1+ (NEGATIVE) 07/11/22 10:15 Urine Nitrite Negative (NEGATIVE) 07/11/22 10:15 Urine Bilirubin Negative (NEGATIVE) 07/11/22 10:15 Urine Urobilinogen Normal (NORMAL) 07/11/22 10:15 Ur Leukocyte Esterase Negative (NEGATIVE) 07/11/22 10:15 Urine RBC 0-2 /HPF (0-3) 07/11/22 10:15 Urine WBC 0-2 /HPF (0-5) 07/11/22 10:15 Ur Squamous Epith Cells Few /HPF (NEGATIVE) 07/11/22 10:15 Urine Bacteria Negative /HPF (NEGATIVE) 07/11/22 10:15 Ur Culture Indicated? No/not indicated 07/11/22 10:15 Resp Viral Panel (PCR) See scanned report 07/08/22 16:58 - Plan (1) COPD with acute bronchitis Status: Acute Plan: SUPPLEMENTAL OXYGEN, NS AT 75 ML/HR, FORTAZ 1G IV Q8H, LEVAQUIN 750MG IV DAILY, DUONEBS Q4H, PULMICORT NEBS BID, TUSSIONEX 5ML PO Q12H PRN, LOVENOX 40MG SC DAILY, ROBITUSSIN DM 10ML QID, PROBIOTICS, AND SOLU-MEDROL 80MG IV Q8H. RESUME HOME MEDS. CONSULT CARDIOLOGY, OBTAIN CARDIAC ENZYMES AND EKG (2) Streptococcus pneumoniae Status: Acute (3) Rhinovirus Status: Acute (4) Chest pain Status: Resolved Qualifiers: Chest pain type: chest pain on breathing Qualified Code(s): R07.1 - Chest pain on breathing (5) Dementia Status: Chronic Qualifiers: Dementia type: Alzheimer's Alzheimer's disease onset: unspecified onset Dementia severity: unspecified severity Dementia behavioral or psychological symptom: without behavioral, psychotic, or mood disturbance or anxiety Qualified Code(s): G30.9 - Alzheimer's disease, unspecified; F02.80 - Dementia in other diseases classified elsewhere, unspecified severity, without behavioral disturbance, psychotic disturbance, mood disturbance, and anxiety (6) HTN (hypertension) Status: Acute Qualifiers: Hypertension type: primary hypertension Qualified Code(s): I10 - Essential (primary) hypertension (7) Atherosclerotic heart disease Status: Chronic Qualifiers: Coronary Disease-Associated Artery/Lesion type: [place] artery [place] vs. transplanted heart: [place] heart Associated angina: unspecified whether angina present Qualified Code(s): I25.10 - Atherosclerotic heart disease of [place] coronary artery without angina pectoris
--- NOTE | 2022-07-13 21:41 | PCM.PROG ---
Progress Note - Progress Note for Day of Date of Exam: 07/13/22 - Subjective Subjective: IS A 82 YEAR OLD PATIENT OF OURS. SHE IS CURRENTLY OBSERVATION STATUS FOR [facility] OF COPD EXACERBATION WITH ACUTE BRONCHITIS. SHE HAS A PMH OF CVA, [place] WITH CARDIAC STENTS, DEMENTIA, ALZHEIMERS, HYPERLIPIDEMIA, HTN, ATHEROSCLEROTIC HEART DISEASE, CAD. TODAY, SHE IS ALERT AND ORIENTED, LYING IN BED ON MORNING ROUNDS. SHE IS ABLE TO FOLLOW COMMANDS AND ANSWER QUESTIONS APPROPRIATELY. SHE DENIES CHEST PAIN THIS MORNING, BUT CONTINUES WITH COMPLAINTS OF COUGH AND SHORTNESS OF BREATH AT TIMES. ON EXAMINATION, HEART IS REGULAR IN RATE AND RHYTHM. BILATERAL LUNGS ARE NOTED WITH RHONCHI, DIMINISHED. ABDOMEN IS FLAT, SOFT, AND NON-TENDER WITH NORMAL BOWEL SOUNDS NOTED IN ALL QUADRANTS. NO UPPER OR LOWER EXTREMITY EDEMA NOTED. HER VITALS THIS MORNING ARE: 98.1-68-20-92%-182/81. LABS WERE OBTAINED. WBC 4.9, RBC 3.17, HGB 10.2, HCT 28.8, PLT COUNT 138, SODIUM 147, POTASSIUM 3.7, CHLORIDE 113, BUN 21, CREATININE 0.77, GLUCOSE 195, CALCIUM 8.3, AST 25, ALT 35, ALK PHOS 57, TOTAL PROTEIN 5.4, ALBUMIN 2.6. RESPIRATORY VIRAL PANEL IS POSITIVE FOR GROWTH OF STREPTOCOCCUS PNEUMONIAE AND RHINOVIRUS. SHE IS CURRENTLY RECEIVING NS AT 75 ML/HR, FORTAZ 1G IV Q8H, LEVAQUIN 750MG IV DAILY, DUONEBS Q4H, PULMICORT NEBS BID, TUSSIONEX 5ML PO Q12H PRN, LOVENOX 40MG SC DAILY, ROBITUSSIN DM 10ML QID, PROBIOTICS, AND SOLU-MEDROL 80MG IV Q8H. HER HOME MEDICATIONS OF LIPITOR, PERIACTIN, AND NAMENDA WERE RESUMED. TODAY, WE WILL ADD AMLODIPINE 5MG HS FOR ELEVATED BLOOD PRESSURE. WE ARE ARRANGING HALF-WAY PLACEMENT. OTHERWISE, WE WILL FOLLOW-UP WITH AM LABS AND CONTINUE TO MONITOR. TIME SPENT ON CLINICAL ASSESSMENT, REVIWING LABS AND IMAGING, DECISION MAKING, AND DOCUMENTATION GREATER THAN 45 MINUTES. - Past Medical Family Social History Past Med/Fam/Surg Hx: No changes since H&P Allergies: Allergies No Known Allergies Allergy (Verified 07/08/22 17:30) - Review of Systems ROS: No change since H&P - Vital Signs and I&O's Vital Signs: Temperature 98.1 F Pulse Rate [Left Radial] 78 Pulse Rate 88 Respiratory Rate 18 Blood Pressure [Left Arm] 169/74 Blood Pressure [Right Arm] 162/82 O2 Sat by Pulse Oximetry 94 Intake and Output: Intake & Output 07/11/22 07/12/22 07/13/22 07/14/22 11:59 11:59 11:59 11:59 Intake Total 3140 / 3140 3240 / 3240 3073 / 3073 1290 / 1290 Balance 3140 / 3140 3240 / 3240 3073 / 3073 1290 / 1290 - Physical Exam Oriented: Normal Eyes: Normal Ear: Normal Nose: Normal Throat: Normal Respiratory: Diminished, Rhonchi Cardiovascular: Normal : Normal Auscultation: Bowel Sounds: Normal Palpation: Normal Tenderness: Normal Skin: Normal Musculoskeletal: Normal Psychiatric: Normal Mood Description: Calm Affect: Normal Speech Pattern: Clear, Appropriate - Laboratory and Diagnostics Result Diagrams: 07/13/22 04:50 07/13/22 04:50 Labs: 07/08/22 16:30 Blood Blood Culture - Preliminary 07/08/22 16:20 Blood Blood Culture - Preliminary Laboratory WBC 4.9 X10^3/uL (3.6-10.0) 07/13/22 04:50 RBC 3.17 X10^6/uL (3.5-5.4) L 07/13/22 04:50 Hgb 10.2 g/dL (12.0-16.0) L 07/13/22 04:50 Hct 28.8 % (36.0-47.0) L 07/13/22 04:50 MCV 90.7 fL (80.0-100.0) 07/13/22 04:50 MCH 32.3 pg (27.0-34.0) 07/13/22 04:50 MCHC 35.6 g/dL (33.0-35.0) H 07/13/22 04:50 RDW 13.4 % (11.6-16.5) 07/13/22 04:50 Plt Count 138 X10^3/uL (150.0-450.0) L 07/13/22 04:50 MPV 8.0 fL (7.4-11.0) 07/13/22 04:50 Neut % (Auto) 89.0 % (42.0-75.0) H 07/13/22 04:50 Lymph % (Auto) 7.3 % (21.0-51.0) L 07/13/22 04:50 [place] % (Auto) 3.7 % (0.0-13.0) 07/13/22 04:50 Eos % (Auto) 0.0 % (0.9-2.9) L 07/13/22 04:50 Baso % (Auto) 0 % (0.2-1.0) L 07/13/22 04:50 Neut # (Auto) 4.4 x10^3/uL (2.2-4.8) 07/13/22 04:50 Lymph # (Auto) 0.4 X10^3/uL (1.3-2.9) L 07/13/22 04:50 [place] # (Auto) 0.2 x10^3/uL (0.3-0.8) L 07/13/22 04:50 Eos # (Auto) 0.0 x10^3/uL (0.0-0.2) 07/13/22 04:50 Baso # (Auto) 0.0 X10^3/uL (0.0-0.1) 07/13/22 04:50 Absolute Nucleated RBC 0.1 /100WBC 07/13/22 04:50 D-Dimer 1.09 ug/ml (0.0-0.57) H 07/10/22 10:23 Sodium 147 mmol/L (136-145) H 07/13/22 04:50 Corrected Sodium 149 mmol/L (136-145) H 07/13/22 04:50 Potassium 3.7 mmol/L (3.5-5.1) 07/13/22 04:50 Chloride 113 mmol/L (98-107) H 07/13/22 04:50 Carbon Dioxide 25.7 mmol/L (21-32) 07/13/22 04:50 BUN 21 mg/dL (7-18) H 07/13/22 04:50 Creatinine 0.77 mg/dL (0.55-1.02) 07/13/22 04:50 Est GFR (MDRD) Af Amer > 60 (>60) 07/13/22 04:50 Est GFR (MDRD) Non-Af > 60 (>60) 07/13/22 04:50 Glucose 195 mg/dL (65-99) H 07/13/22 04:50 Calcium 8.3 mg/dL (8.5-10.1) L 07/13/22 04:50 Corrected Calcium 9.4 mg/dL (8.5-10.1) 07/13/22 04:50 Magnesium 2.2 mg/dL (2.0-2.9) 07/11/22 04:46 Total Bilirubin 0.20 mg/dL (0.2-1.0) 07/13/22 04:50 AST 25 Units/L (15-37) 07/13/22 04:50 ALT 35 Units/L (12-78) 07/13/22 04:50 Alkaline Phosphatase 57 Units/L (46-116) 07/13/22 04:50 Creatine Kinase 94 Units/L (26-192) 07/10/22 16:50 Troponin I High Sens 22.8 ng/L (4.0-60.0) 07/10/22 22:20 Total Protein 5.4 g/dL (6.4-8.2) L 07/13/22 04:50 Albumin 2.6 g/dL (3.4-5.0) L 07/13/22 04:50 Globulin 2.8 g/dL (2.5-4.5) 07/13/22 04:50 Albumin/Globulin Ratio 0.9 Ratio (1.1-2.1) L 07/13/22 04:50 Specimen Type Clean catch urine 07/11/22 10:15 Urine Color Straw (YELLOW) 07/11/22 10:15 Urine Appearance Clear (CLEAR) 07/11/22 10:15 Urine pH 6.0 (5.0 - 8.0) 07/11/22 10:15 Ur Specific [place] 1.010 (1.000-1.030) 07/11/22 10:15 Urine Protein Negative (NEGATIVE) 07/11/22 10:15 Urine Glucose (UA) Negative (NEGATIVE) 07/11/22 10:15 Urine Ketones Negative (NEGATIVE) 07/11/22 10:15 Urine Blood 1+ (NEGATIVE) 07/11/22 10:15 Urine Nitrite Negative (NEGATIVE) 07/11/22 10:15 Urine Bilirubin Negative (NEGATIVE) 07/11/22 10:15 Urine Urobilinogen Normal (NORMAL) 07/11/22 10:15 Ur Leukocyte Esterase Negative (NEGATIVE) 07/11/22 10:15 Urine RBC 0-2 /HPF (0-3) 07/11/22 10:15 Urine WBC 0-2 /HPF (0-5) 07/11/22 10:15 Ur Squamous Epith Cells Few /HPF (NEGATIVE) 07/11/22 10:15 Urine Bacteria Negative /HPF (NEGATIVE) 07/11/22 10:15 Ur Culture Indicated? No/not indicated 07/11/22 10:15 Resp Viral Panel (PCR) See scanned report 07/08/22 16:58 - Plan (1) COPD with acute bronchitis Status: Acute Plan: SUPPLEMENTAL OXYGEN, NS AT 75 ML/HR, FORTAZ 1G IV Q8H, LEVAQUIN 750MG IV DAILY, DUONEBS Q4H, PULMICORT NEBS BID, TUSSIONEX 5ML PO Q12H PRN, LOVENOX 40MG SC DAILY, ROBITUSSIN DM 10ML QID, PROBIOTICS, AND SOLU-MEDROL 80MG IV Q8H, AMLODIPINE 5MG HS. (2) Streptococcus pneumoniae Status: Acute (3) Rhinovirus Status: Acute (4) Chest pain Status: Resolved Qualifiers: Chest pain type: chest pain on breathing Qualified Code(s): R07.1 - Chest pain on breathing (5) Dementia Status: Chronic Qualifiers: Dementia type: Alzheimer's Alzheimer's disease onset: unspecified onset Dementia severity: unspecified severity Dementia behavioral or psychological symptom: without behavioral, psychotic, or mood disturbance or anxiety Qualified Code(s): G30.9 - Alzheimer's disease, unspecified; F02.80 - Dementia in other diseases classified elsewhere, unspecified severity, without behavioral disturbance, psychotic disturbance, mood disturbance, and anxiety (6) HTN (hypertension) Status: Acute Qualifiers: Hypertension type: primary hypertension Qualified Code(s): I10 - Essential (primary) hypertension (7) Atherosclerotic heart disease Status: Chronic Qualifiers: Coronary Disease-Associated Artery/Lesion type: [place] artery [place] vs. transplanted heart: [place] heart Associated angina: unspecified whether angina present Qualified Code(s): I25.10 - Atherosclerotic heart disease of [place] coronary artery without angina pectoris
[2022-07-14] MEDS: SOLU-Medrol 40 MG VIAL IVP SCH ×3 (05:48→21:21)
[2022-07-14] MEDS: FORTAZ or TAZICEF VIAL INJ 1 G in NS 100 ML IV 100 ML IV SCH ×3 (05:48→21:20)
[2022-07-14 06:21] LABS: BASOPHILS % (AUTO) 0 % (0.2-1.0); HEMATOCRIT 30.6 % (36.0-47.0); HEMOGLOBIN 10.7 g/dL (12.0-16.0); LYMPHOCYTES # (AUTO) 0.5 X10^3/uL (1.3-2.9); LYMPHOCYTES % (AUTO) 8.6 % (21.0-51.0); MEAN CORPUSCULAR HGB CONC 35.1 g/dL (33.0-35.0); MEAN CORPUSCULAR VOLUME 91.1 fL (80.0-100.0); MEAN PLATELET VOLUME 8.4 fL (7.4-11.0); MONOCYTES # (AUTO) 0.3 x10^3/uL (0.3-0.8); NEUTROPHILS # (AUTO) 4.6 x10^3/uL (2.2-4.8); NEUTROPHILS % (AUTO) 86.4 % (42.0-75.0); RED BLOOD COUNT 3.35 X10^6/uL (3.5-5.4); RED CELL DISTRIBUTION WIDTH 13.2 % (11.6-16.5); WHITE BLOOD COUNT 5.3 X10^3/uL (3.6-10.0)
[2022-07-14 06:38] LABS: ALANINE AMINOTRANSFERASE 39 Units/L (12-78); ALBUMIN 2.5 g/dL (3.4-5.0); ALKALINE PHOSPHATASE 54 Units/L (46-116); ASPARTATE AMINO TRANSFERASE 26 Units/L (15-37); BLOOD UREA NITROGEN 18 mg/dL (7-18); CALCIUM 8.2 mg/dL (8.5-10.1); CARBON DIOXIDE 30.6 mmol/L (21-32); CHLORIDE 109 mmol/L (98-107); COR CA(FOR HYPOALB) 9.4 mg/dL (8.5-10.1); COR NA(FOR HYPERGLY) 148 mmol/L (136-145); CREATININE 0.75 mg/dL (0.55-1.02); SODIUM 145 mmol/L (136-145); TOTAL PROTEIN 5.2 g/dL (6.4-8.2); eGFR NON BLACK RACES > 60 (>60)
[2022-07-14] MEDS: DUONEB 0.5 MG/3 MG (3 mL) NEB SCH ×4 (08:12→21:24)
[2022-07-14] MEDS: PULMICORT NEB TX 0.5 MG NEB SCH ×2 (08:12→21:24)
[2022-07-14] MEDS: LOVENOX INJ 40 MG SYR SC SCH (09:09)
[2022-07-14] MEDS: NAMENDA TAB 10 MG PO SCH ×2 (09:09→20:27)
[2022-07-14] MEDS: COLACE CAP 100 MG PO SCH ×2 (09:09→20:38)
[2022-07-14] MEDS: PERIACTIN TAB 4 MG PO SCH ×2 (09:09→20:26)
[2022-07-14] MEDS: MILK OF MAGNESIA PO SCH ×2 (09:09→20:37)
[2022-07-14] MEDS: COREG TAB 12.5 MG PO SCH ×2 (09:09→20:27)
[2022-07-14] MEDS: ROBITUSSIN DM PO SCH ×4 (09:10→20:25)
[2022-07-14] MEDS: VSL#3 PO SCH (09:10)
[2022-07-14] MEDS: MAGNESIUM SULFATE 1 GRAM/100 mL PREMIX 1 G/100 ML BAG IV PRN ×2 (09:24→10:14)
--- NOTE | 2022-07-14 12:13 | PCM.PROG ---
Progress Note - Progress Note for Day of Date of Exam: 07/14/22 - Subjective Subjective: IS A 82 YEAR OLD PATIENT OF OURS. SHE IS CURRENTLY OBSERVATION STATUS FOR [facility] OF COPD EXACERBATION WITH ACUTE BRONCHITIS. SHE HAS A PMH OF CVA, [place] WITH CARDIAC STENTS, DEMENTIA, ALZHEIMERS, HYPERLIPIDEMIA, HTN, ATHEROSCLEROTIC HEART DISEASE, CAD. TODAY, SHE IS ALERT AND ORIENTED, LYING IN BED ON MORNING ROUNDS. SHE IS ABLE TO FOLLOW COMMANDS AND ANSWER QUESTIONS APPROPRIATELY. SHE DENIES CHEST PAIN THIS MORNING, BUT CONTINUES WITH COMPLAINTS OF NON-PRODUCTIVE COUGH AND SHORTNESS OF BREATH AT TIMES. ON EXAMINATION, HEART IS REGULAR IN RATE AND RHYTHM. BILATERAL LUNGS ARE NOTED WITH RHONCHI, DIMINISHED. ABDOMEN IS FLAT, SOFT, AND NON-TENDER WITH NORMAL BOWEL SOUNDS NOTED IN ALL QUADRANTS. NO UPPER OR LOWER EXTREMITY EDEMA NOTED. HER VITALS THIS MORNING ARE: 98.9-69-20-92%-173/75. LABS WERE OBTAINED. WBC 5.3, RBC 3.35, HGB 10.7, HCT 30.6, PLT COUNT 150, SODIUM 145, POTASSIUM 3.0, CHLORIDE 109, BUN 18, CREATININE 0.75, GLUCOSE 244, CALCIUM 8.2, MAGNESIUM 1.8, AST 26, ALT 39, ALK PHOS 54, TOTAL PROTEIN 5.2, ALBUMIN 2.5. RESPIRATORY VIRAL PANEL IS POSITIVE FOR GROWTH OF STREPTOCOCCUS PNEUMONIAE AND RHINOVIRUS. SHE IS CURRENTLY RECEIVING NS AT 75 ML/HR, FORTAZ 1G IV Q8H, LEVAQUIN 750MG IV DAILY, DUONEBS Q4H, PULMICORT NEBS BID, TUSSIONEX 5ML PO Q12H PRN, LOVENOX 40MG SC DAILY, ROBITUSSIN DM 10ML QID, PROBIOTICS, SOLU-MEDROL 80MG IV Q8H, AMLODIPINE 5MG HS. HER HOME MEDICATIONS OF LIPITOR, PERIACTIN, AND NAMENDA WERE RESUMED. WE ARE ARRANGING CUSTODIAL PLACEMENT. OTHERWISE, WE WILL FOLLOW-UP WITH AM LABS AND CONTINUE TO MONITOR. TIME SPENT ON CLINICAL ASSESSMENT, REVIWING LABS AND IMAGING, DECISION MAKING, AND DOCUMENTATION GREATER THAN 45 MINUTES. - Past Medical Family Social History Past Med/Fam/Surg Hx: No changes since H&P Allergies: Allergies No Known Allergies Allergy (Verified 07/08/22 17:30) - Review of Systems ROS: No change since H&P - Vital Signs and I&O's Vital Signs: Temperature 98.9 F Pulse Rate [Left Radial] 69 Pulse Rate 67 Respiratory Rate 20 Blood Pressure [Left Arm] 173/75 Blood Pressure [Right Arm] 162/82 O2 Sat by Pulse Oximetry 95 Intake and Output: Intake & Output 07/12/22 07/13/22 07/14/22 07/15/22 11:59 11:59 11:59 11:59 Intake Total 3240 / 3240 3073 / 3073 3017 / 3017 Balance 3240 / 3240 3073 / 3073 3017 / 3017 - Physical Exam Oriented: Normal Eyes: Normal Ear: Normal Nose: Normal Throat: Normal Respiratory: Diminished, Rhonchi Cardiovascular: Normal : Normal Auscultation: Bowel Sounds: Normal Palpation: Normal Tenderness: Normal Skin: Normal Musculoskeletal: Normal Psychiatric: Normal Mood Description: Calm Affect: Normal Speech Pattern: Clear, Appropriate - Laboratory and Diagnostics Result Diagrams: 07/14/22 05:24 07/14/22 10:54 Labs: 07/08/22 16:30 Blood Blood Culture - Final 07/08/22 16:20 Blood Blood Culture - Final Laboratory WBC 5.3 X10^3/uL (3.6-10.0) 07/14/22 05:24 RBC 3.35 X10^6/uL (3.5-5.4) L 07/14/22 05:24 Hgb 10.7 g/dL (12.0-16.0) L 07/14/22 05:24 Hct 30.6 % (36.0-47.0) L 07/14/22 05:24 MCV 91.1 fL (80.0-100.0) 07/14/22 05:24 MCH 32.0 pg (27.0-34.0) 07/14/22 05:24 MCHC 35.1 g/dL (33.0-35.0) H 07/14/22 05:24 RDW 13.2 % (11.6-16.5) 07/14/22 05:24 Plt Count 150 X10^3/uL (150.0-450.0) 07/14/22 05:24 MPV 8.4 fL (7.4-11.0) 07/14/22 05:24 Neut % (Auto) 86.4 % (42.0-75.0) H 07/14/22 05:24 Lymph % (Auto) 8.6 % (21.0-51.0) L 07/14/22 05:24 [place] % (Auto) 5.0 % (0.0-13.0) 07/14/22 05:24 Eos % (Auto) 0.0 % (0.9-2.9) L 07/14/22 05:24 Baso % (Auto) 0 % (0.2-1.0) L 07/14/22 05:24 Neut # (Auto) 4.6 x10^3/uL (2.2-4.8) 07/14/22 05:24 Lymph # (Auto) 0.5 X10^3/uL (1.3-2.9) L 07/14/22 05:24 [place] # (Auto) 0.3 x10^3/uL (0.3-0.8) 07/14/22 05:24 Eos # (Auto) 0.0 x10^3/uL (0.0-0.2) 07/14/22 05:24 Baso # (Auto) 0.0 X10^3/uL (0.0-0.1) 07/14/22 05:24 Absolute Nucleated RBC 0.1 /100WBC 07/14/22 05:24 D-Dimer 1.09 ug/ml (0.0-0.57) H 07/10/22 10:23 Sodium 145 mmol/L (136-145) 07/14/22 05:24 Corrected Sodium 148 mmol/L (136-145) H 07/14/22 05:24 Potassium 3.8 mmol/L (3.5-5.1) 07/14/22 10:54 Chloride 109 mmol/L (98-107) H 07/14/22 05:24 Carbon Dioxide 30.6 mmol/L (21-32) 07/14/22 05:24 BUN 18 mg/dL (7-18) 07/14/22 05:24 Creatinine 0.75 mg/dL (0.55-1.02) 07/14/22 05:24 Est GFR (MDRD) Af Amer > 60 (>60) 07/14/22 05:24 Est GFR (MDRD) Non-Af > 60 (>60) 07/14/22 05:24 Glucose 244 mg/dL (65-99) H 07/14/22 05:24 Calcium 8.2 mg/dL (8.5-10.1) L 07/14/22 05:24 Corrected Calcium 9.4 mg/dL (8.5-10.1) 07/14/22 05:24 Magnesium 1.8 mg/dL (2.0-2.9) L 07/14/22 05:24 Total Bilirubin 0.20 mg/dL (0.2-1.0) 07/14/22 05:24 AST 26 Units/L (15-37) 07/14/22 05:24 ALT 39 Units/L (12-78) 07/14/22 05:24 Alkaline Phosphatase 54 Units/L (46-116) 07/14/22 05:24 Creatine Kinase 94 Units/L (26-192) 07/10/22 16:50 Troponin I High Sens 22.8 ng/L (4.0-60.0) 07/10/22 22:20 Total Protein 5.2 g/dL (6.4-8.2) L 07/14/22 05:24 Albumin 2.5 g/dL (3.4-5.0) L 07/14/22 05:24 Globulin 2.7 g/dL (2.5-4.5) 07/14/22 05:24 Albumin/Globulin Ratio 0.9 Ratio (1.1-2.1) L 07/14/22 05:24 Specimen Type Clean catch urine 07/11/22 10:15 Urine Color Straw (YELLOW) 07/11/22 10:15 Urine Appearance Clear (CLEAR) 07/11/22 10:15 Urine pH 6.0 (5.0 - 8.0) 07/11/22 10:15 Ur Specific [place] 1.010 (1.000-1.030) 07/11/22 10:15 Urine Protein Negative (NEGATIVE) 07/11/22 10:15 Urine Glucose (UA) Negative (NEGATIVE) 07/11/22 10:15 Urine Ketones Negative (NEGATIVE) 07/11/22 10:15 Urine Blood 1+ (NEGATIVE) 07/11/22 10:15 Urine Nitrite Negative (NEGATIVE) 07/11/22 10:15 Urine Bilirubin Negative (NEGATIVE) 07/11/22 10:15 Urine Urobilinogen Normal (NORMAL) 07/11/22 10:15 Ur Leukocyte Esterase Negative (NEGATIVE) 07/11/22 10:15 Urine RBC 0-2 /HPF (0-3) 07/11/22 10:15 Urine WBC 0-2 /HPF (0-5) 07/11/22 10:15 Ur Squamous Epith Cells Few /HPF (NEGATIVE) 07/11/22 10:15 Urine Bacteria Negative /HPF (NEGATIVE) 07/11/22 10:15 Ur Culture Indicated? No/not indicated 07/11/22 10:15 Resp Viral Panel (PCR) See scanned report 07/08/22 16:58 - Plan (1) COPD with acute bronchitis Status: Acute Plan: SUPPLEMENTAL OXYGEN, NS AT 75 ML/HR, FORTAZ 1G IV Q8H, LEVAQUIN 750MG IV DAILY, DUONEBS Q4H, PULMICORT NEBS BID, TUSSIONEX 5ML PO Q12H PRN, LOVENOX 40MG SC DAILY, ROBITUSSIN DM 10ML QID, PROBIOTICS, AND SOLU-MEDROL 80MG IV Q8H, AMLODIPINE 5MG HS. (2) Streptococcus pneumoniae Status: Acute (3) Rhinovirus Status: Acute (4) Chest pain Status: Resolved Qualifiers: Chest pain type: chest pain on breathing Qualified Code(s): R07.1 - Chest pain on breathing (5) Dementia Status: Chronic Qualifiers: Dementia type: Alzheimer's Alzheimer's disease onset: unspecified onset Dementia severity: unspecified severity Dementia behavioral or psychological symptom: without behavioral, psychotic, or mood disturbance or anxiety Qualified Code(s): G30.9 - Alzheimer's disease, unspecified; F02.80 - Dementia in other diseases classified elsewhere, unspecified severity, without behavioral disturbance, psychotic disturbance, mood disturbance, and anxiety (6) HTN (hypertension) Status: Acute Qualifiers: Hypertension type: primary hypertension Qualified Code(s): I10 - Essential (primary) hypertension (7) Atherosclerotic heart disease Status: Chronic Qualifiers: Coronary Disease-Associated Artery/Lesion type: [place] artery [place] vs. transplanted heart: [place] heart Associated angina: unspecified whether angina present Qualified Code(s): I25.10 - Atherosclerotic heart disease of [place] coronary artery without angina pectoris
[2022-07-14] MEDS: NS 1/2 1,000 ML IV 1,000 ML IV SCH ×3 (13:31→23:31)
[2022-07-14] MEDS: LIPITOR TAB 40 MG PO SCH (20:25)
[2022-07-14] MEDS: VALIUM PO PRN (20:26)
[2022-07-14] MEDS: K-DUR TAB 20 MEQ PO PRN (20:26)
[2022-07-14] MEDS: NORVASC TAB 5 MG PO SCH (20:26)
[2022-07-14] MEDS: LEVAQUIN PREMIX IV 750 MG 750 MG/150 ML BAG IV SCH (20:29)
[2022-07-14] MEDS ORDERED: NS 1/2 1,000 ML IV 1,000 ML IV ONE (23:31)
[2022-07-15] MEDS: FORTAZ or TAZICEF VIAL INJ 1 G in NS 100 ML IV 100 ML IV SCH ×3 (05:46→22:39)
[2022-07-15] MEDS: SOLU-Medrol 40 MG VIAL IVP SCH ×3 (05:46→21:45)
[2022-07-15 06:20] LABS: BASOPHILS % (AUTO) 0 % (0.2-1.0); HEMATOCRIT 31.6 % (36.0-47.0); LYMPHOCYTES # (AUTO) 0.6 X10^3/uL (1.3-2.9); LYMPHOCYTES % (AUTO) 7.8 % (21.0-51.0); MEAN CORPUSCULAR HEMOGLOBIN 31.8 pg (27.0-34.0); MEAN CORPUSCULAR HGB CONC 34.8 g/dL (33.0-35.0); MEAN CORPUSCULAR VOLUME 91.4 fL (80.0-100.0); MONOCYTES # (AUTO) 0.5 x10^3/uL (0.3-0.8); NEUTROPHILS # (AUTO) 6.5 x10^3/uL (2.2-4.8); NEUTROPHILS % (AUTO) 86.2 % (42.0-75.0); RED BLOOD COUNT 3.46 X10^6/uL (3.5-5.4); RED CELL DISTRIBUTION WIDTH 13.3 % (11.6-16.5); WHITE BLOOD COUNT 7.6 X10^3/uL (3.6-10.0)
[2022-07-15 06:48] LABS: ALANINE AMINOTRANSFERASE 62 Units/L (12-78); ALBUMIN 2.5 g/dL (3.4-5.0); ALKALINE PHOSPHATASE 60 Units/L (46-116); ASPARTATE AMINO TRANSFERASE 36 Units/L (15-37); BLOOD UREA NITROGEN 19 mg/dL (7-18); CARBON DIOXIDE 30.3 mmol/L (21-32); CHLORIDE 108 mmol/L (98-107); COR CA(FOR HYPOALB) 9.2 mg/dL (8.5-10.1); COR NA(FOR HYPERGLY) 148 mmol/L (136-145); CREATININE 0.76 mg/dL (0.55-1.02); MAGNESIUM 2.7 mg/dL (2.0-2.9); SODIUM 143 mmol/L (136-145); TOTAL PROTEIN 5.2 g/dL (6.4-8.2); eGFR NON BLACK RACES > 60 (>60)
[2022-07-15] MEDS: PULMICORT NEB TX 0.5 MG NEB SCH ×2 (08:21→21:21)
[2022-07-15] MEDS: DUONEB 0.5 MG/3 MG (3 mL) NEB SCH ×4 (08:21→21:21)
[2022-07-15] MEDS: COREG TAB 12.5 MG PO SCH ×2 (09:31→20:50)
[2022-07-15] MEDS: LOVENOX INJ 40 MG SYR SC SCH (09:32)
[2022-07-15] MEDS: MILK OF MAGNESIA PO SCH ×2 (09:32→21:22)
[2022-07-15] MEDS: NAMENDA TAB 10 MG PO SCH ×2 (09:32→20:49)
[2022-07-15] MEDS: PERIACTIN TAB 4 MG PO SCH ×2 (09:32→20:49)
[2022-07-15] MEDS: NORVASC TAB 5 MG PO SCH (09:32)
[2022-07-15] MEDS: ROBITUSSIN DM PO SCH ×4 (09:32→20:50)
[2022-07-15] MEDS: VSL#3 PO SCH (09:33)
[2022-07-15] MEDS: COLACE CAP 100 MG PO SCH ×2 (09:35→20:49)
[2022-07-15] MEDS ORDERED: NS 1/2 1,000 ML IV 1,000 ML IV ONE ×2 (10:00→19:48)
--- NOTE | 2022-07-15 11:39 | PCM.PROG ---
Progress Note - Progress Note for Day of Date of Exam: 07/15/22 - Subjective Subjective: IS A 82 YEAR OLD PATIENT OF OURS. SHE IS CURRENTLY OBSERVATION STATUS FOR [facility] OF COPD EXACERBATION WITH ACUTE BRONCHITIS. SHE HAS A PMH OF CVA, [place] WITH CARDIAC STENTS, DEMENTIA, ALZHEIMERS, HYPERLIPIDEMIA, HTN, ATHEROSCLEROTIC HEART DISEASE, CAD. TODAY, SHE IS ALERT AND ORIENTED, LYING IN BED ON MORNING ROUNDS. SHE IS ABLE TO FOLLOW COMMANDS AND ANSWER QUESTIONS APPROPRIATELY. SHE DENIES CHEST PAIN THIS MORNING, BUT CONTINUES WITH COMPLAINTS OF NON-PRODUCTIVE COUGH AND SHORTNESS OF BREATH AT TIMES. STAFF REPORTS THAT PATIENT HAS AMBULATED IN ROOM, BUT REQUIRES ASSISTANCE WITH AMBULATION AND ADLs. ON EXAMINATION, HEART IS REGULAR IN RATE AND RHYTHM. BILATERAL LUNGS ARE NOTED WITH RHONCHI, DIMINISHED. ABDOMEN IS FLAT, SOFT, AND NON-TENDER WITH NORMAL BOWEL SOUNDS NOTED IN ALL QUADRANTS. NO UPPER OR LOWER EXTREMITY EDEMA NOTED. HER VITALS THIS MORNING ARE: 98.0-66-18-95%-173/72. LABS WERE OBTAINED. WBC 7.6, RBC 3.46, HGB 11.0, HCT 31.6, PLT COUNT 159, SODIUM 143, POTASSIUM 3.9, CHLORIDE 108, BUN 19, CREATININE 0.76, GLUCOSE 303, CALCIUM 8.0, AST 36, ALT 62, ALBUMIN 60, TOTAL PROTEIN 5.2, ALBUMIN 2.5. RESPIRATORY VIRAL PANEL IS POSITIVE FOR GROWTH OF STREPTOCOCCUS PNEUMONIAE AND RHINOVIRUS. SHE IS CURRENTLY RECEIVING NS AT 75 ML/HR, FORTAZ 1G IV Q8H, LEVAQUIN 750MG IV DAILY, DUONEBS Q4H, PULMICORT NEBS BID, TUSSIONEX 5ML PO Q12H PRN, LOVENOX 40MG SC DAILY, ROBITUSSIN DM 10ML QID, PROBIOTICS, SOLU-MEDROL 80MG IV Q8H, AMLODIPINE 5MG HS. HER HOME MEDICATIONS OF LIPITOR, PERIACTIN, AND NAMENDA WERE RESUMED. WE ARE ARRANGING CORRECTION PLACEMENT. IN THE MEANTIME, PHYSICAL THERAPY WILL CONTINUE TO WORK WITH HER. OTHERWISE, WE WILL FOLLOW-UP WITH AM LABS AND CONTINUE TO MONITOR. TIME SPENT ON CLINICAL ASSESSMENT, REVIWING LABS AND IMAGING, DECISION MAKING, AND DOCUMENTATION GREATER THAN 45 MINUTES. - Past Medical Family Social History Past Med/Fam/Surg Hx: No changes since H&P Allergies: Allergies No Known Allergies Allergy (Verified 07/08/22 17:30) - Review of Systems ROS: No change since H&P - Vital Signs and I&O's Vital Signs: Temperature 98 F Pulse Rate [Left Radial] 66 Pulse Rate 68 Respiratory Rate 18 Blood Pressure [Left Arm] 173/72 Blood Pressure [Right Arm] 162/82 O2 Sat by Pulse Oximetry 96 Intake and Output: Intake & Output 07/12/22 07/13/22 07/14/22 07/15/22 11:59 11:59 11:59 11:59 Intake Total 3240 / 3240 3073 / 3073 3017 / 3017 2554 / 2554 Balance 3240 / 3240 3073 / 3073 3017 / 3017 2554 / 2554 - Physical Exam Oriented: Normal Eyes: Normal Ear: Normal Nose: Normal Throat: Normal Respiratory: Diminished, Rhonchi Cardiovascular: Normal : Normal Auscultation: Bowel Sounds: Normal Tenderness: Normal Skin: Normal Musculoskeletal: Normal Psychiatric: Normal Mood Description: Calm Affect: Normal Speech Pattern: Clear, Appropriate - Laboratory and Diagnostics Result Diagrams: 07/15/22 05:52 07/15/22 05:52 Labs: 07/08/22 16:30 Blood Blood Culture - Final 07/08/22 16:20 Blood Blood Culture - Final Laboratory WBC 7.6 X10^3/uL (3.6-10.0) 07/15/22 05:52 RBC 3.46 X10^6/uL (3.5-5.4) L 07/15/22 05:52 Hgb 11.0 g/dL (12.0-16.0) L 07/15/22 05:52 Hct 31.6 % (36.0-47.0) L 07/15/22 05:52 MCV 91.4 fL (80.0-100.0) 07/15/22 05:52 MCH 31.8 pg (27.0-34.0) 07/15/22 05:52 MCHC 34.8 g/dL (33.0-35.0) 07/15/22 05:52 RDW 13.3 % (11.6-16.5) 07/15/22 05:52 Plt Count 159 X10^3/uL (150.0-450.0) 07/15/22 05:52 MPV 8.0 fL (7.4-11.0) 07/15/22 05:52 Neut % (Auto) 86.2 % (42.0-75.0) H 07/15/22 05:52 Lymph % (Auto) 7.8 % (21.0-51.0) L 07/15/22 05:52 [place] % (Auto) 6.0 % (0.0-13.0) 07/15/22 05:52 Eos % (Auto) 0.0 % (0.9-2.9) L 07/15/22 05:52 Baso % (Auto) 0 % (0.2-1.0) L 07/15/22 05:52 Neut # (Auto) 6.5 x10^3/uL (2.2-4.8) H 07/15/22 05:52 Lymph # (Auto) 0.6 X10^3/uL (1.3-2.9) L 07/15/22 05:52 [place] # (Auto) 0.5 x10^3/uL (0.3-0.8) 07/15/22 05:52 Eos # (Auto) 0.0 x10^3/uL (0.0-0.2) 07/15/22 05:52 Baso # (Auto) 0.0 X10^3/uL (0.0-0.1) 07/15/22 05:52 Absolute Nucleated RBC 0.2 /100WBC 07/15/22 05:52 D-Dimer 1.09 ug/ml (0.0-0.57) H 07/10/22 10:23 Sodium 143 mmol/L (136-145) 07/15/22 05:52 Corrected Sodium 148 mmol/L (136-145) H 07/15/22 05:52 Potassium 3.9 mmol/L (3.5-5.1) 07/15/22 05:52 Chloride 108 mmol/L (98-107) H 07/15/22 05:52 Carbon Dioxide 30.3 mmol/L (21-32) 07/15/22 05:52 BUN 19 mg/dL (7-18) H 07/15/22 05:52 Creatinine 0.76 mg/dL (0.55-1.02) 07/15/22 05:52 Est GFR (MDRD) Af Amer > 60 (>60) 07/15/22 05:52 Est GFR (MDRD) Non-Af > 60 (>60) 07/15/22 05:52 Glucose 303 mg/dL (65-99) H 07/15/22 05:52 Calcium 8.0 mg/dL (8.5-10.1) L 07/15/22 05:52 Corrected Calcium 9.2 mg/dL (8.5-10.1) 07/15/22 05:52 Magnesium 2.7 mg/dL (2.0-2.9) 07/15/22 05:52 Total Bilirubin 0.20 mg/dL (0.2-1.0) 07/15/22 05:52 AST 36 Units/L (15-37) 07/15/22 05:52 ALT 62 Units/L (12-78) 07/15/22 05:52 Alkaline Phosphatase 60 Units/L (46-116) 07/15/22 05:52 Creatine Kinase 94 Units/L (26-192) 07/10/22 16:50 Troponin I High Sens 22.8 ng/L (4.0-60.0) 07/10/22 22:20 Total Protein 5.2 g/dL (6.4-8.2) L 07/15/22 05:52 Albumin 2.5 g/dL (3.4-5.0) L 07/15/22 05:52 Globulin 2.7 g/dL (2.5-4.5) 07/15/22 05:52 Albumin/Globulin Ratio 0.9 Ratio (1.1-2.1) L 07/15/22 05:52 Specimen Type Clean catch urine 07/11/22 10:15 Urine Color Straw (YELLOW) 07/11/22 10:15 Urine Appearance Clear (CLEAR) 07/11/22 10:15 Urine pH 6.0 (5.0 - 8.0) 07/11/22 10:15 Ur Specific [place] 1.010 (1.000-1.030) 07/11/22 10:15 Urine Protein Negative (NEGATIVE) 07/11/22 10:15 Urine Glucose (UA) Negative (NEGATIVE) 07/11/22 10:15 Urine Ketones Negative (NEGATIVE) 07/11/22 10:15 Urine Blood 1+ (NEGATIVE) 07/11/22 10:15 Urine Nitrite Negative (NEGATIVE) 07/11/22 10:15 Urine Bilirubin Negative (NEGATIVE) 07/11/22 10:15 Urine Urobilinogen Normal (NORMAL) 07/11/22 10:15 Ur Leukocyte Esterase Negative (NEGATIVE) 07/11/22 10:15 Urine RBC 0-2 /HPF (0-3) 07/11/22 10:15 Urine WBC 0-2 /HPF (0-5) 07/11/22 10:15 Ur Squamous Epith Cells Few /HPF (NEGATIVE) 07/11/22 10:15 Urine Bacteria Negative /HPF (NEGATIVE) 07/11/22 10:15 Ur Culture Indicated? No/not indicated 07/11/22 10:15 Resp Viral Panel (PCR) See scanned report 07/08/22 16:58 - Plan (1) COPD with acute bronchitis Status: Acute Plan: SUPPLEMENTAL OXYGEN, NS AT 75 ML/HR, FORTAZ 1G IV Q8H, LEVAQUIN 750MG IV DAILY, DUONEBS Q4H, PULMICORT NEBS BID, TUSSIONEX 5ML PO Q12H PRN, LOVENOX 40MG SC DAILY, ROBITUSSIN DM 10ML QID, PROBIOTICS, AND SOLU-MEDROL 80MG IV Q8H, AMLODIPINE 5MG HS. (2) Streptococcus pneumoniae Status: Acute (3) Rhinovirus Status: Acute (4) Chest pain Status: Resolved Qualifiers: Chest pain type: chest pain on breathing Qualified Code(s): R07.1 - Chest pain on breathing (5) Dementia Status: Chronic Qualifiers: Dementia type: Alzheimer's Alzheimer's disease onset: unspecified onset Dementia severity: unspecified severity Dementia behavioral or psychological symptom: without behavioral, psychotic, or mood disturbance or anxiety Qualified Code(s): G30.9 - Alzheimer's disease, unspecified; F02.80 - Dementia in other diseases classified elsewhere, unspecified severity, without behavioral disturbance, psychotic disturbance, mood disturbance, and anxiety (6) HTN (hypertension) Status: Acute Qualifiers: Hypertension type: primary hypertension Qualified Code(s): I10 - Essential (primary) hypertension (7) Atherosclerotic heart disease Status: Chronic Qualifiers: Coronary Disease-Associated Artery/Lesion type: [place] artery [place] vs. transplanted heart: [place] heart Associated angina: unspecified whether angina present Qualified Code(s): I25.10 - Atherosclerotic heart disease of [place] coronary artery without angina pectoris
[2022-07-15] MEDS: NS 1/2 1,000 ML IV 1,000 ML IV SCH ×3 (12:50→19:14)
[2022-07-15] MEDS: LEVAQUIN PREMIX IV 750 MG 750 MG/150 ML BAG IV SCH (20:50)
[2022-07-15] MEDS: LIPITOR TAB 40 MG PO SCH (20:50)
[2022-07-16] MEDS: FORTAZ or TAZICEF VIAL INJ 1 G in NS 100 ML IV 100 ML IV SCH ×3 (05:07→20:59)
[2022-07-16] MEDS: SOLU-Medrol 40 MG VIAL IVP SCH ×3 (05:08→20:59)
[2022-07-16 05:24] LABS: BASOPHILS % (AUTO) 0.1 % (0.2-1.0); HEMATOCRIT 29.8 % (36.0-47.0); HEMOGLOBIN 10.4 g/dL (12.0-16.0); LYMPHOCYTES # (AUTO) 0.5 X10^3/uL (1.3-2.9); LYMPHOCYTES % (AUTO) 6.4 % (21.0-51.0); MEAN CORPUSCULAR HEMOGLOBIN 31.7 pg (27.0-34.0); MEAN CORPUSCULAR HGB CONC 34.7 g/dL (33.0-35.0); MEAN CORPUSCULAR VOLUME 91.3 fL (80.0-100.0); MEAN PLATELET VOLUME 7.7 fL (7.4-11.0); MONOCYTES # (AUTO) 0.5 x10^3/uL (0.3-0.8); MONOCYTES % (AUTO) 6.4 % (0.0-13.0); NEUTROPHILS # (AUTO) 6.6 x10^3/uL (2.2-4.8); NEUTROPHILS % (AUTO) 87.1 % (42.0-75.0); RED BLOOD COUNT 3.26 X10^6/uL (3.5-5.4); RED CELL DISTRIBUTION WIDTH 13.3 % (11.6-16.5); WHITE BLOOD COUNT 7.6 X10^3/uL (3.6-10.0)
[2022-07-16 05:39] LABS: ALANINE AMINOTRANSFERASE 46 Units/L (12-78); ALBUMIN 2.2 g/dL (3.4-5.0); ALKALINE PHOSPHATASE 55 Units/L (46-116); ASPARTATE AMINO TRANSFERASE 19 Units/L (15-37); BLOOD UREA NITROGEN 20 mg/dL (7-18); CALCIUM 7.7 mg/dL (8.5-10.1); CARBON DIOXIDE 31.5 mmol/L (21-32); CHLORIDE 108 mmol/L (98-107); COR CA(FOR HYPOALB) 9.1 mg/dL (8.5-10.1); COR NA(FOR HYPERGLY) 146 mmol/L (136-145); CREATININE 0.72 mg/dL (0.55-1.02); SODIUM 141 mmol/L (136-145); TOTAL PROTEIN 4.7 g/dL (6.4-8.2); eGFR NON BLACK RACES > 60 (>60)
[2022-07-16] MEDS: NS 1/2 1,000 ML IV 1,000 ML IV SCH ×2 (07:27→23:38)
[2022-07-16] MEDS: DUONEB 0.5 MG/3 MG (3 mL) NEB SCH ×5 (07:55→20:20)
[2022-07-16] MEDS: PULMICORT NEB TX 0.5 MG NEB SCH ×3 (07:57→20:20)
[2022-07-16] MEDS: ROBITUSSIN DM PO SCH ×4 (08:12→20:54)
[2022-07-16] MEDS: COLACE CAP 100 MG PO SCH ×2 (08:12→23:37)
[2022-07-16] MEDS: LOVENOX INJ 40 MG SYR SC SCH (08:12)
[2022-07-16] MEDS: VSL#3 PO SCH (08:12)
[2022-07-16] MEDS: MILK OF MAGNESIA PO SCH ×2 (08:12→23:38)
[2022-07-16] MEDS: COREG TAB 12.5 MG PO SCH ×2 (08:13→20:54)
[2022-07-16] MEDS: NORVASC TAB 5 MG PO SCH (08:13)
[2022-07-16] MEDS: PERIACTIN TAB 4 MG PO SCH ×2 (08:13→20:54)
[2022-07-16] MEDS: NAMENDA TAB 10 MG PO SCH ×2 (08:13→20:54)
[2022-07-16 09:16] VITALS: BMI 23.0
[2022-07-16] MEDS ORDERED: APLISOL ID ONE (10:00)
--- NOTE | 2022-07-16 10:59 | PCM.PROG ---
Progress Note - Progress Note for Day of Date of Exam: 07/16/22 - Subjective Subjective: IS A 82 YEAR OLD PATIENT OF OURS. SHE IS CURRENTLY OBSERVATION STATUS FOR [facility] OF COPD EXACERBATION WITH ACUTE BRONCHITIS. SHE HAS A PMH OF CVA, [place] WITH CARDIAC STENTS, DEMENTIA, ALZHEIMERS, HYPERLIPIDEMIA, HTN, ATHEROSCLEROTIC HEART DISEASE, CAD. TODAY, SHE IS ALERT AND ORIENTED, LYING IN BED ON MORNING ROUNDS. SHE IS ABLE TO FOLLOW COMMANDS AND ANSWER QUESTIONS APPROPRIATELY. SHE DENIES CHEST PAIN THIS MORNING, BUT CONTINUES WITH COMPLAINTS OF NON-PRODUCTIVE COUGH AND SHORTNESS OF BREATH AT TIMES. STAFF REPORTS THAT PATIENT HAS AMBULATED IN ROOM. ON EXAMINATION, HEART IS REGULAR IN RATE AND RHYTHM. BILATERAL LUNGS ARE NOTED WITH RHONCHI, DIMINISHED. ABDOMEN IS FLAT, SOFT, AND NON-TENDER WITH NORMAL BOWEL SOUNDS NOTED IN ALL QUADRANTS. NO UPPER OR LOWER EXTREMITY EDEMA NOTED. HER VITALS THIS MORNING ARE: 98.0-75-20-94%-143/67. LABS WERE OBTAINED. WBC 7.6, RBC 3.26, HGB 10.4, HCT 29.8, PLT COUNT 162, SODIUM 141, POTASSIUM 4.0, CHLORIDE 108, BUN 20, CREATININE 0.72, GLUCOSE 316, CALCIUM 7.7, AST 19, ALT 46, ALK PHOS 55, TOTAL PROTEIN 4.7, ALBUMIN 2.2. RESPIRATORY VIRAL PANEL IS POSITIVE FOR GROWTH OF STREPTOCOCCUS PNEUMONIAE AND RHINOVIRUS. SHE IS CURRENTLY RECEIVING NS AT 75 ML/HR, FORTAZ 1G IV Q8H, LEVAQUIN 750MG IV DAILY, DUONEBS Q4H, PULMICORT NEBS BID, TUSSIONEX 5ML PO Q12H PRN, LOVENOX 40MG SC DAILY, ROBITUSSIN DM 10ML QID, PROBIOTICS, SOLU-MEDROL 80MG IV Q8H, AMLODIPINE 5MG HS. HER HOME MEDICATIONS OF LIPITOR, PERIACTIN, AND NAMENDA WERE RESUMED. WE ARE ARRANGING PLACEMENT AT ASSISTED LIVING. IN THE MEANTIME, PHYSICAL THERAPY WILL CONTINUE TO WORK WITH HER. OTHERWISE, WE WILL FOLLOW-UP WITH AM LABS AND CONTINUE TO MONITOR. TIME SPENT ON CLINICAL ASSESSMENT, REVIWING LABS AND IMAGING, DECISION MAKING, AND DOCUMENTATION GREATER THAN 45 MINUTES. - Past Medical Family Social History Past Med/Fam/Surg Hx: No changes since H&P Allergies: Allergies No Known Allergies Allergy (Verified 07/08/22 17:30) - Review of Systems ROS: No change since H&P - Vital Signs and I&O's Vital Signs: Temperature 98.0 F Pulse Rate [Left Radial] 75 Pulse Rate 66 Respiratory Rate 20 Blood Pressure [Left Arm] 143/67 Blood Pressure [Right Arm] 171/73 O2 Sat by Pulse Oximetry 94 Intake and Output: Intake & Output 07/13/22 07/14/22 07/15/22 07/16/22 11:59 11:59 11:59 11:59 Intake Total 3073 / 3073 3017 / 3017 2554 / 2554 4136 / 4136 Balance 3073 / 3073 3017 / 3017 2554 / 2554 4136 / 4136 - Physical Exam Oriented: Normal Eyes: Normal Ear: Normal Nose: Normal Throat: Normal Respiratory: Diminished, Rhonchi Cardiovascular: Normal : Normal Auscultation: Bowel Sounds: Normal Tenderness: Normal Skin: Normal Musculoskeletal: Normal Psychiatric: Normal Mood Description: Calm Affect: Normal Speech Pattern: Clear, Appropriate - Laboratory and Diagnostics Result Diagrams: 07/16/22 05:13 07/16/22 05:13 Labs: 07/08/22 16:30 Blood Blood Culture - Final 07/08/22 16:20 Blood Blood Culture - Final Laboratory WBC 7.6 X10^3/uL (3.6-10.0) 07/16/22 05:13 RBC 3.26 X10^6/uL (3.5-5.4) L 07/16/22 05:13 Hgb 10.4 g/dL (12.0-16.0) L 07/16/22 05:13 Hct 29.8 % (36.0-47.0) L 07/16/22 05:13 MCV 91.3 fL (80.0-100.0) 07/16/22 05:13 MCH 31.7 pg (27.0-34.0) 07/16/22 05:13 MCHC 34.7 g/dL (33.0-35.0) 07/16/22 05:13 RDW 13.3 % (11.6-16.5) 07/16/22 05:13 Plt Count 162 X10^3/uL (150.0-450.0) 07/16/22 05:13 MPV 7.7 fL (7.4-11.0) 07/16/22 05:13 Neut % (Auto) 87.1 % (42.0-75.0) H 07/16/22 05:13 Lymph % (Auto) 6.4 % (21.0-51.0) L 07/16/22 05:13 [place] % (Auto) 6.4 % (0.0-13.0) 07/16/22 05:13 Eos % (Auto) 0.0 % (0.9-2.9) L 07/16/22 05:13 Baso % (Auto) 0.1 % (0.2-1.0) L 07/16/22 05:13 Neut # (Auto) 6.6 x10^3/uL (2.2-4.8) H 07/16/22 05:13 Lymph # (Auto) 0.5 X10^3/uL (1.3-2.9) L 07/16/22 05:13 [place] # (Auto) 0.5 x10^3/uL (0.3-0.8) 07/16/22 05:13 Eos # (Auto) 0.0 x10^3/uL (0.0-0.2) 07/16/22 05:13 Baso # (Auto) 0.0 X10^3/uL (0.0-0.1) 07/16/22 05:13 Absolute Nucleated RBC 0.1 /100WBC 07/16/22 05:13 D-Dimer 1.09 ug/ml (0.0-0.57) H 07/10/22 10:23 Sodium 141 mmol/L (136-145) 07/16/22 05:13 Corrected Sodium 146 mmol/L (136-145) H 07/16/22 05:13 Potassium 4.0 mmol/L (3.5-5.1) 07/16/22 05:13 Chloride 108 mmol/L (98-107) H 07/16/22 05:13 Carbon Dioxide 31.5 mmol/L (21-32) 07/16/22 05:13 BUN 20 mg/dL (7-18) H 07/16/22 05:13 Creatinine 0.72 mg/dL (0.55-1.02) 07/16/22 05:13 Est GFR (MDRD) Af Amer > 60 (>60) 07/16/22 05:13 Est GFR (MDRD) Non-Af > 60 (>60) 07/16/22 05:13 Glucose 316 mg/dL (65-99) H 07/16/22 05:13 Calcium 7.7 mg/dL (8.5-10.1) L 07/16/22 05:13 Corrected Calcium 9.1 mg/dL (8.5-10.1) 07/16/22 05:13 Magnesium 2.7 mg/dL (2.0-2.9) 07/15/22 05:52 Total Bilirubin 0.20 mg/dL (0.2-1.0) 07/16/22 05:13 AST 19 Units/L (15-37) 07/16/22 05:13 ALT 46 Units/L (12-78) 07/16/22 05:13 Alkaline Phosphatase 55 Units/L (46-116) 07/16/22 05:13 Creatine Kinase 94 Units/L (26-192) 07/10/22 16:50 Troponin I High Sens 22.8 ng/L (4.0-60.0) 07/10/22 22:20 Total Protein 4.7 g/dL (6.4-8.2) L 07/16/22 05:13 Albumin 2.2 g/dL (3.4-5.0) L 07/16/22 05:13 Globulin 2.5 g/dL (2.5-4.5) 07/16/22 05:13 Albumin/Globulin Ratio 0.9 Ratio (1.1-2.1) L 07/16/22 05:13 Specimen Type Clean catch urine 07/11/22 10:15 Urine Color Straw (YELLOW) 07/11/22 10:15 Urine Appearance Clear (CLEAR) 07/11/22 10:15 Urine pH 6.0 (5.0 - 8.0) 07/11/22 10:15 Ur Specific [place] 1.010 (1.000-1.030) 07/11/22 10:15 Urine Protein Negative (NEGATIVE) 07/11/22 10:15 Urine Glucose (UA) Negative (NEGATIVE) 07/11/22 10:15 Urine Ketones Negative (NEGATIVE) 07/11/22 10:15 Urine Blood 1+ (NEGATIVE) 07/11/22 10:15 Urine Nitrite Negative (NEGATIVE) 07/11/22 10:15 Urine Bilirubin Negative (NEGATIVE) 07/11/22 10:15 Urine Urobilinogen Normal (NORMAL) 07/11/22 10:15 Ur Leukocyte Esterase Negative (NEGATIVE) 07/11/22 10:15 Urine RBC 0-2 /HPF (0-3) 07/11/22 10:15 Urine WBC 0-2 /HPF (0-5) 07/11/22 10:15 Ur Squamous Epith Cells Few /HPF (NEGATIVE) 07/11/22 10:15 Urine Bacteria Negative /HPF (NEGATIVE) 07/11/22 10:15 Ur Culture Indicated? No/not indicated 07/11/22 10:15 Resp Viral Panel (PCR) See scanned report 07/08/22 16:58 - Plan (1) COPD with acute bronchitis Status: Acute Plan: SUPPLEMENTAL OXYGEN, NS AT 75 ML/HR, FORTAZ 1G IV Q8H, LEVAQUIN 750MG IV DAILY, DUONEBS Q4H, PULMICORT NEBS BID, TUSSIONEX 5ML PO Q12H PRN, LOVENOX 40MG SC DAILY, ROBITUSSIN DM 10ML QID, PROBIOTICS, AND SOLU-MEDROL 80MG IV Q8H, AMLODIPINE 5MG HS. (2) Streptococcus pneumoniae Status: Acute (3) Rhinovirus Status: Acute (4) Chest pain Status: Resolved Qualifiers: Chest pain type: chest pain on breathing Qualified Code(s): R07.1 - Chest pain on breathing (5) Dementia Status: Chronic Qualifiers: Dementia type: Alzheimer's Alzheimer's disease onset: unspecified onset Dementia severity: unspecified severity Dementia behavioral or psychological symptom: without behavioral, psychotic, or mood disturbance or anxiety Qualified Code(s): G30.9 - Alzheimer's disease, unspecified; F02.80 - Dementia in other diseases classified elsewhere, unspecified severity, without behavioral disturbance, psychotic disturbance, mood disturbance, and anxiety (6) HTN (hypertension) Status: Acute Qualifiers: Hypertension type: primary hypertension Qualified Code(s): I10 - Essential (primary) hypertension (7) Atherosclerotic heart disease Status: Chronic Qualifiers: Coronary Disease-Associated Artery/Lesion type: [place] artery [place] vs. transplanted heart: [place] heart Associated angina: unspecified whether angina present Qualified Code(s): I25.10 - Atherosclerotic heart disease of [place] coronary artery without angina pectoris
[2022-07-16] MEDS: LIPITOR TAB 40 MG PO SCH (20:55)
[2022-07-16] MEDS: LEVAQUIN PREMIX IV 750 MG 750 MG/150 ML BAG IV SCH (20:55)
[2022-07-16] MEDS ORDERED: NS 1/2 1,000 ML IV 1,000 ML IV ONE (22:21)
[2022-07-17] MEDS: FORTAZ or TAZICEF VIAL INJ 1 G in NS 100 ML IV 100 ML IV SCH ×3 (05:21→22:01)
[2022-07-17] MEDS: SOLU-Medrol 40 MG VIAL IVP SCH ×3 (05:21→22:02)
[2022-07-17 06:07] LABS: BASOPHILS % (AUTO) 0 % (0.2-1.0); HEMATOCRIT 29.1 % (36.0-47.0); HEMOGLOBIN 10.1 g/dL (12.0-16.0); LYMPHOCYTES # (AUTO) 0.7 X10^3/uL (1.3-2.9); LYMPHOCYTES % (AUTO) 8.8 % (21.0-51.0); MEAN CORPUSCULAR HEMOGLOBIN 31.7 pg (27.0-34.0); MEAN CORPUSCULAR HGB CONC 34.6 g/dL (33.0-35.0); MEAN CORPUSCULAR VOLUME 91.6 fL (80.0-100.0); MEAN PLATELET VOLUME 7.7 fL (7.4-11.0); MONOCYTES # (AUTO) 0.5 x10^3/uL (0.3-0.8); MONOCYTES % (AUTO) 7.2 % (0.0-13.0); NEUTROPHILS # (AUTO) 6.3 x10^3/uL (2.2-4.8); RED BLOOD COUNT 3.17 X10^6/uL (3.5-5.4); RED CELL DISTRIBUTION WIDTH 13.6 % (11.6-16.5); WHITE BLOOD COUNT 7.6 X10^3/uL (3.6-10.0)
[2022-07-17 06:33] LABS: ALANINE AMINOTRANSFERASE 40 Units/L (12-78); ALBUMIN 2.1 g/dL (3.4-5.0); ALKALINE PHOSPHATASE 52 Units/L (46-116); ASPARTATE AMINO TRANSFERASE 15 Units/L (15-37); BLOOD UREA NITROGEN 19 mg/dL (7-18); CALCIUM 7.8 mg/dL (8.5-10.1); CARBON DIOXIDE 31.1 mmol/L (21-32); CHLORIDE 107 mmol/L (98-107); COR CA(FOR HYPOALB) 9.3 mg/dL (8.5-10.1); COR NA(FOR HYPERGLY) 147 mmol/L (136-145); CREATININE 0.72 mg/dL (0.55-1.02); SODIUM 141 mmol/L (136-145); TOTAL PROTEIN 4.5 g/dL (6.4-8.2); eGFR NON BLACK RACES > 60 (>60)
[2022-07-17] MEDS: PULMICORT NEB TX 0.5 MG NEB SCH ×2 (08:03→21:33)
[2022-07-17] MEDS: DUONEB 0.5 MG/3 MG (3 mL) NEB SCH ×4 (08:03→21:33)
[2022-07-17] MEDS: NORVASC TAB 5 MG PO SCH (09:10)
[2022-07-17] MEDS: ZESTRIL TAB 20 MG PO SCH ×2 (09:10→22:01)
[2022-07-17] MEDS: VSL#3 PO SCH (09:32)
[2022-07-17] MEDS: MILK OF MAGNESIA PO SCH ×2 (09:32→22:01)
[2022-07-17] MEDS: LOVENOX INJ 40 MG SYR SC SCH (09:32)
[2022-07-17] MEDS: COREG TAB 12.5 MG PO SCH ×2 (09:33→20:46)
[2022-07-17] MEDS: ROBITUSSIN DM PO SCH ×4 (09:33→20:46)
[2022-07-17] MEDS: PERIACTIN TAB 4 MG PO SCH ×2 (09:33→20:46)
[2022-07-17] MEDS: COLACE CAP 100 MG PO SCH ×2 (09:33→22:01)
[2022-07-17] MEDS: NAMENDA TAB 10 MG PO SCH ×2 (09:33→20:46)
[2022-07-17] MEDS: NS 1/2 1,000 ML IV 1,000 ML IV SCH (12:11)
[2022-07-17] MEDS ORDERED: CATAPRES TAB 0.1 MG PO ONE (12:28)
[2022-07-17] MEDS ORDERED: NS 1/2 1,000 ML IV 1,000 ML IV ONE (18:29)
[2022-07-17] MEDS ORDERED: ZESTRIL TAB 20 MG ONE (20:17)
[2022-07-17] MEDS: LEVAQUIN PREMIX IV 750 MG 750 MG/150 ML BAG IV SCH (20:45)
[2022-07-17] MEDS: LIPITOR TAB 40 MG PO SCH (20:46)
[2022-07-18] MEDS: NS 1/2 1,000 ML IV 1,000 ML IV SCH ×2 (04:27→04:38)
[2022-07-18] MEDS ORDERED: NS 1/2 1,000 ML IV 1,000 ML IV ONE (04:31)
[2022-07-18] MEDS: FORTAZ or TAZICEF VIAL INJ 1 G in NS 100 ML IV 100 ML IV SCH ×3 (06:05→23:00)
[2022-07-18] MEDS: SOLU-Medrol 40 MG VIAL IVP SCH ×3 (06:05→23:00)
[2022-07-18 06:19] LABS: BASOPHILS % (AUTO) 0.2 % (0.2-1.0); EOSINOPHILS % (AUTO) 0.1 % (0.9-2.9); HEMATOCRIT 30.4 % (36.0-47.0); HEMOGLOBIN 10.5 g/dL (12.0-16.0); LYMPHOCYTES # (AUTO) 0.5 X10^3/uL (1.3-2.9); LYMPHOCYTES % (AUTO) 10.1 % (21.0-51.0); MEAN CORPUSCULAR HEMOGLOBIN 31.8 pg (27.0-34.0); MEAN CORPUSCULAR HGB CONC 34.7 g/dL (33.0-35.0); MEAN CORPUSCULAR VOLUME 91.6 fL (80.0-100.0); MEAN PLATELET VOLUME 7.9 fL (7.4-11.0); MONOCYTES # (AUTO) 0.2 x10^3/uL (0.3-0.8); MONOCYTES % (AUTO) 4.6 % (0.0-13.0); NEUTROPHILS # (AUTO) 4.5 x10^3/uL (2.2-4.8); RED BLOOD COUNT 3.32 X10^6/uL (3.5-5.4); RED CELL DISTRIBUTION WIDTH 13.6 % (11.6-16.5); WHITE BLOOD COUNT 5.3 X10^3/uL (3.6-10.0)
[2022-07-18 06:40] LABS: ALANINE AMINOTRANSFERASE 51 Units/L (12-78); ALKALINE PHOSPHATASE 50 Units/L (46-116); ASPARTATE AMINO TRANSFERASE 29 Units/L (15-37); BLOOD UREA NITROGEN 21 mg/dL (7-18); CALCIUM 7.7 mg/dL (8.5-10.1); CARBON DIOXIDE 30.9 mmol/L (21-32); CHLORIDE 107 mmol/L (98-107); COR CA(FOR HYPOALB) 9.3 mg/dL (8.5-10.1); COR NA(FOR HYPERGLY) 149 mmol/L (136-145); CREATININE 0.73 mg/dL (0.55-1.02); SODIUM 143 mmol/L (136-145); TOTAL PROTEIN 4.4 g/dL (6.4-8.2); eGFR NON BLACK RACES > 60 (>60)
[2022-07-18] MEDS: PULMICORT NEB TX 0.5 MG NEB SCH ×2 (08:49→21:08)
[2022-07-18] MEDS: DUONEB 0.5 MG/3 MG (3 mL) NEB SCH ×4 (08:49→21:08)
--- NOTE | 2022-07-18 09:59 | PCM.PROG ---
Progress Note - Progress Note for Day of Date of Exam: 07/17/22 - Subjective Subjective: IS A 82 YEAR OLD PATIENT OF OURS. SHE IS CURRENTLY OBSERVATION STATUS FOR [facility] [place] OF COPD EXACERBATION WITH ACUTE BRONCHITIS. SHE HAS A PMH OF CVA, [place] WITH CARDIAC STENTS, DEMENTIA, ALZHEIMERS, HYPERLIPIDEMIA, HTN, ATHEROSCLEROTIC HEART DISEASE, CAD. TODAY, SHE IS ALERT AND ORIENTED, LYING IN BED ON MORNING ROUNDS. SHE IS ABLE TO FOLLOW COMMANDS AND ANSWER QUESTIONS APPROPRIATELY. SHE DENIES CHEST PAIN THIS MORNING, BUT CONTINUES WITH COMPLAINTS OF A NON-PRODUCTIVE COUGH AT TIMES. SHE ALSO COMPLAINS OF PERSISTENT WEAKNESS. STAFF REPORTS THAT PATIENT HAS AMBULATED IN ROOM WITH MINIMAL ASSISTANCE. ON EXAMINATION, HEART IS REGULAR IN RATE AND RHYTHM. BILATERAL LUNGS ARE NOTED WITH RHONCHI, DIMINISHED. ABDOMEN IS FLAT, SOFT, AND NON-TENDER WITH NORMAL BOWEL SOUNDS NOTED IN ALL QUADRANTS. NO UPPER OR LOWER EXTREMITY EDEMA NOTED. HER VITALS THIS MORNING ARE: 98.3-63-18-96%-186/91. LABS WERE OBTAINED. WBC 7.6, RBC 3.17, HGB 10.1, HCT 29.1, PLT COUNT 163, SODIUM 141, POTASSIUM 3.7, CHLORIDE 107, BUN 19, CREATININE 0.72, GLUCOSE 355, CALCIUM 7.8, AST 15, ALT 40, ALK PHOS 52, TOTAL PROTEIN 4.5, ALBUMIN 2.1. RESPIRATORY VIRAL PANEL IS POSITIVE FOR GROWTH OF STREPTOCOCCUS PNEUMONIAE AND RHINOVIRUS. SHE IS CURRENTLY RECEIVING NS AT 75 ML/HR, FORTAZ 1G IV Q8H, LEVAQUIN 750MG IV DAILY, DUONEBS Q4H, PULMICORT NEBS BID, TUSSIONEX 5ML PO Q12H PRN, LOVENOX 40MG SC DAILY, ROBITUSSIN DM 10ML QID, PROBIOTICS, SOLU-MEDROL 40MG IV Q8H, AMLODIPINE 5MG HS. HER HOME MEDICATIONS OF LIPITOR, PERIACTIN, AND NAMENDA WERE RESUMED. TODAY, WE WILL RESUME HER LISINOPRIL DUE TO HYPERTENSION. WE ARE ARRANGING PLACEMENT AT ASSISTED LIVING. IN THE MEANTIME, PHYSICAL THERAPY WILL CONTINUE TO WORK WITH HER. OTHERWISE, WE WILL FOLLOW-UP WITH AM LABS AND CONTINUE TO MONITOR. TIME SPENT ON CLINICAL ASSESSMENT, REVIWING LABS AND IMAGING, DECISION MAKING, AND DOCUMENTATION GREATER THAN 45 MINUTES. - Past Medical Family Social History Past Med/Fam/Surg Hx: No changes since H&P Allergies: Allergies No Known Allergies Allergy (Verified 07/08/22 17:30) - Review of Systems ROS: No change since H&P - Vital Signs and I&O's Vital Signs: Temperature 98.1 F Pulse Rate [Left Radial] 61 Pulse Rate 76 Respiratory Rate 18 Blood Pressure [Left Arm] 191/81 Blood Pressure [Right Arm] 162/72 O2 Sat by Pulse Oximetry 95 Intake and Output: Intake & Output 07/15/22 07/16/22 07/17/22 07/18/22 11:59 11:59 11:59 11:59 Intake Total 2554 / 2554 4136 / 4136 3520 / 3520 2840 / 2840 Balance 2554 / 2554 4136 / 4136 3520 / 3520 2840 / 2840 - Physical Exam Oriented: Normal Eyes: Normal Ear: Normal Nose: Normal Throat: Normal Respiratory: Diminished, Rhonchi Cardiovascular: Normal : Normal Auscultation: Bowel Sounds: Normal Tenderness: Normal Skin: Normal Musculoskeletal: Normal Psychiatric: Normal Mood Description: Calm Affect: Normal Speech Pattern: Clear, Appropriate - Laboratory and Diagnostics Result Diagrams: 07/18/22 05:27 07/18/22 05:27 Labs: 07/08/22 16:30 Blood Blood Culture - Final 07/08/22 16:20 Blood Blood Culture - Final Laboratory WBC 5.3 X10^3/uL (3.6-10.0) 07/18/22 05:27 RBC 3.32 X10^6/uL (3.5-5.4) L 07/18/22 05:27 Hgb 10.5 g/dL (12.0-16.0) L 07/18/22 05:27 Hct 30.4 % (36.0-47.0) L 07/18/22 05:27 MCV 91.6 fL (80.0-100.0) 07/18/22 05:27 MCH 31.8 pg (27.0-34.0) 07/18/22 05:27 MCHC 34.7 g/dL (33.0-35.0) 07/18/22 05:27 RDW 13.6 % (11.6-16.5) 07/18/22 05:27 Plt Count 159 X10^3/uL (150.0-450.0) 07/18/22 05:27 MPV 7.9 fL (7.4-11.0) 07/18/22 05:27 Neut % (Auto) 85.0 % (42.0-75.0) H 07/18/22 05:27 Lymph % (Auto) 10.1 % (21.0-51.0) L 07/18/22 05:27 [place] % (Auto) 4.6 % (0.0-13.0) 07/18/22 05:27 Eos % (Auto) 0.1 % (0.9-2.9) L 07/18/22 05:27 Baso % (Auto) 0.2 % (0.2-1.0) 07/18/22 05:27 Neut # (Auto) 4.5 x10^3/uL (2.2-4.8) 07/18/22 05:27 Lymph # (Auto) 0.5 X10^3/uL (1.3-2.9) L 07/18/22 05:27 [place] # (Auto) 0.2 x10^3/uL (0.3-0.8) L 07/18/22 05:27 Eos # (Auto) 0.0 x10^3/uL (0.0-0.2) 07/18/22 05:27 Baso # (Auto) 0.0 X10^3/uL (0.0-0.1) 07/18/22 05:27 Absolute Nucleated RBC 0.1 /100WBC 07/18/22 05:27 D-Dimer 1.09 ug/ml (0.0-0.57) H 07/10/22 10:23 Sodium 143 mmol/L (136-145) 07/18/22 05:27 Corrected Sodium 149 mmol/L (136-145) H 07/18/22 05:27 Potassium 3.8 mmol/L (3.5-5.1) 07/18/22 05:27 Chloride 107 mmol/L (98-107) 07/18/22 05:27 Carbon Dioxide 30.9 mmol/L (21-32) 07/18/22 05:27 BUN 21 mg/dL (7-18) H 07/18/22 05:27 Creatinine 0.73 mg/dL (0.55-1.02) 07/18/22 05:27 Est GFR (MDRD) Af Amer > 60 (>60) 07/18/22 05:27 Est GFR (MDRD) Non-Af > 60 (>60) 07/18/22 05:27 Glucose 330 mg/dL (65-99) H 07/18/22 05:27 Calcium 7.7 mg/dL (8.5-10.1) L 07/18/22 05:27 Corrected Calcium 9.3 mg/dL (8.5-10.1) 07/18/22 05:27 Magnesium 2.7 mg/dL (2.0-2.9) 07/15/22 05:52 Total Bilirubin 0.20 mg/dL (0.2-1.0) 07/18/22 05:27 AST 29 Units/L (15-37) 07/18/22 05:27 ALT 51 Units/L (12-78) 07/18/22 05:27 Alkaline Phosphatase 50 Units/L (46-116) 07/18/22 05:27 Creatine Kinase 94 Units/L (26-192) 07/10/22 16:50 Troponin I High Sens 22.8 ng/L (4.0-60.0) 07/10/22 22:20 Total Protein 4.4 g/dL (6.4-8.2) L 07/18/22 05:27 Albumin 2.0 g/dL (3.4-5.0) L 07/18/22 05:27 Globulin 2.4 g/dL (2.5-4.5) L 07/18/22 05:27 Albumin/Globulin Ratio 0.8 Ratio (1.1-2.1) L 07/18/22 05:27 Specimen Type Clean catch urine 07/11/22 10:15 Urine Color Straw (YELLOW) 07/11/22 10:15 Urine Appearance Clear (CLEAR) 07/11/22 10:15 Urine pH 6.0 (5.0 - 8.0) 07/11/22 10:15 Ur Specific [place] 1.010 (1.000-1.030) 07/11/22 10:15 Urine Protein Negative (NEGATIVE) 07/11/22 10:15 Urine Glucose (UA) Negative (NEGATIVE) 07/11/22 10:15 Urine Ketones Negative (NEGATIVE) 07/11/22 10:15 Urine Blood 1+ (NEGATIVE) 07/11/22 10:15 Urine Nitrite Negative (NEGATIVE) 07/11/22 10:15 Urine Bilirubin Negative (NEGATIVE) 07/11/22 10:15 Urine Urobilinogen Normal (NORMAL) 07/11/22 10:15 Ur Leukocyte Esterase Negative (NEGATIVE) 07/11/22 10:15 Urine RBC 0-2 /HPF (0-3) 07/11/22 10:15 Urine WBC 0-2 /HPF (0-5) 07/11/22 10:15 Ur Squamous Epith Cells Few /HPF (NEGATIVE) 07/11/22 10:15 Urine Bacteria Negative /HPF (NEGATIVE) 07/11/22 10:15 Ur Culture Indicated? No/not indicated 07/11/22 10:15 Resp Viral Panel (PCR) See scanned report 07/08/22 16:58 - Plan (1) COPD with acute bronchitis Status: Acute Plan: SUPPLEMENTAL OXYGEN, NS AT 75 ML/HR, FORTAZ 1G IV Q8H, LEVAQUIN 750MG IV DAILY, DUONEBS Q4H, PULMICORT NEBS BID, TUSSIONEX 5ML PO Q12H PRN, LOVENOX 40MG SC DAILY, ROBITUSSIN DM 10ML QID, PROBIOTICS, AND SOLU-MEDROL 40MG IV Q8H, LISINOPRIL 20MG BID, AMLODIPINE 5MG HS. (2) Streptococcus pneumoniae Status: Acute (3) Rhinovirus Status: Acute (4) Chest pain Status: Resolved Qualifiers: Chest pain type: chest pain on breathing Qualified Code(s): R07.1 - Chest pain on breathing (5) Dementia Status: Chronic Qualifiers: Dementia type: Alzheimer's Alzheimer's disease onset: unspecified onset D ementia severity: unspecified severity Dementia behavioral or psychological symptom: without behavioral, psychotic, or mood disturbance or anxiety Qualified Code(s): G30.9 - Alzheimer's disease, unspecified; F02.80 - Dementia in other diseases classified elsewhere, unspecified severity, without behavioral disturbance, psychotic disturbance, mood disturbance, and anxiety (6) HTN (hypertension) Status: Acute Qualifiers: Hypertension type: primary hypertension Qualified Code(s): I10 - Essential (primary) hypertension (7) Atherosclerotic heart disease Status: Chronic Qualifiers: Coronary Disease-Associated Artery/Lesion type: [place] artery [place] vs. transplanted heart: [place] heart Associated angina: unspecified whether angina present Qualified Code(s): I25.10 - Atherosclerotic heart disease of [place] coronary artery without angina pectoris
[2022-07-18] MEDS ORDERED: ZESTRIL TAB 20 MG ONE ×2 (10:37→19:29)
[2022-07-18] MEDS: MILK OF MAGNESIA PO SCH ×2 (10:42→20:14)
[2022-07-18] MEDS: COLACE CAP 100 MG PO SCH ×2 (10:42→20:14)
[2022-07-18] MEDS: LOVENOX INJ 40 MG SYR SC SCH (10:42)
[2022-07-18] MEDS: COREG TAB 12.5 MG PO SCH ×2 (10:42→20:14)
[2022-07-18] MEDS: NAMENDA TAB 10 MG PO SCH ×2 (10:42→20:14)
[2022-07-18] MEDS: VSL#3 PO SCH (10:43)
[2022-07-18] MEDS: ZESTRIL TAB 20 MG PO SCH ×2 (10:43→20:13)
[2022-07-18] MEDS: ROBITUSSIN DM PO SCH ×4 (10:43→20:14)
[2022-07-18] MEDS: PERIACTIN TAB 4 MG PO SCH ×2 (10:43→20:14)
[2022-07-18] MEDS: NORVASC TAB 5 MG PO SCH (10:43)
[2022-07-18] MEDS: LIPITOR TAB 40 MG PO SCH (20:14)
[2022-07-18] MEDS: LEVAQUIN PREMIX IV 750 MG 750 MG/150 ML BAG IV SCH (20:15)
[2022-07-19] MEDS ORDERED: NS 1/2 1,000 ML IV 1,000 ML IV ONE (05:27)
[2022-07-19] MEDS: SOLU-Medrol 40 MG VIAL IVP SCH (05:48)
[2022-07-19] MEDS: NS 1/2 1,000 ML IV 1,000 ML IV SCH (05:48)
[2022-07-19] MEDS: FORTAZ or TAZICEF VIAL INJ 1 G in NS 100 ML IV 100 ML IV SCH (05:48)
[2022-07-19] MEDS ORDERED: ZESTRIL TAB 20 MG ONE (08:17)
[2022-07-19] MEDS: PERIACTIN TAB 4 MG PO SCH (08:22)
[2022-07-19] MEDS: LOVENOX INJ 40 MG SYR SC SCH (08:22)
[2022-07-19] MEDS: ZESTRIL TAB 20 MG PO SCH (08:22)
[2022-07-19] MEDS: COREG TAB 12.5 MG PO SCH (08:23)
[2022-07-19] MEDS: VSL#3 PO SCH (08:23)
[2022-07-19] MEDS: NORVASC TAB 5 MG PO SCH (08:23)
[2022-07-19] MEDS: NAMENDA TAB 10 MG PO SCH (08:23)
[2022-07-19] MEDS: COLACE CAP 100 MG PO SCH (08:23)
[2022-07-19] MEDS: ROBITUSSIN DM PO SCH (08:23)
[2022-07-19] MEDS: MILK OF MAGNESIA PO SCH (08:23)
[2022-07-19] MEDS: DUONEB 0.5 MG/3 MG (3 mL) NEB SCH (08:25)
[2022-07-19] MEDS: PULMICORT NEB TX 0.5 MG NEB SCH (08:25)
[2022-07-19] MEDS ORDERED: CATAPRES-TTS-1 TD SCH (10:00)
[2022-07-19 13:03] VITALS: BP 147/79
[2022-07-19] MEDS: VALIUM PO PRN (13:21)
== END 2022-07-19 13:20 | disposition home or self-care (01) ==
LOC: MED/SURG
PROVIDERS: ADMIT Internal Medicine; ATTEND Internal Medicine
DX: R06.02 Shortness of breath; J13 Pneumonia due to Streptococcus pneumoniae; B97.89 Other viral agents as the cause of diseases classified elsewhere; R07.89 Other chest pain